=== PATIENT | male | born 1960 | race Caucasian/White ===

== ENCOUNTER 2021-10-23 12:27 | Inpatient (IN) | payer OTHER, SELFPAY ==
[~2021-10-23] VITALS: Ht 177.8 cm; Wt 99.8 kg
[2021-10-23 12:27] VITALS: BP 150/109
--- NOTE | 2021-10-23 13:05 | NUR ---
PATIENT SOILED IN DIAPER, PROVIDED [facility]A [facility]ARE AT BEDSIDE, CLEAN DIAPER PLACED ON PATIENT. CLEAN BLANKETS GIVEN AND BED PLACED IN LOWEST POSITION W/ SAFETY MEASURES PUT INTO PLACE.
--- NOTE | 2021-10-23 13:09 | NUR ---
BLOOD, URINE AND BALDO SWAB WALKED DOWN TO LAB
[2021-10-23 13:19] LABS: BASOPHILS % (AUTO) 0.3 % (0.0-2.0); EOSINOPHILS # (AUTO) 0.1 K/uL (0-0.4); EOSINOPHILS % (AUTO) 2.2 % (0.0-4.0); HEMATOCRIT 45.8 % (36-52); HEMOGLOBIN 15.1 g/dL (12.0-18.0); LYMPHOCYTES # (AUTO) 2.2 K/uL (2.0-11.5); LYMPHOCYTES % (AUTO) 35.9 % (20.5-51.1); MEAN CORPUSCULAR HEMOGLOBIN 29 pg (27-31); MEAN CORPUSCULAR HGB CONC 33 g/dL (33-37); MEAN CORPUSCULAR VOLUME 88.1 fL (80-94); MONOCYTES # (AUTO) 0.4 K/uL (0.8-1.0); MONOCYTES % (AUTO) 7.2 % (1.7-9.3); NEUTROPHILS # (AUTO) 3.3 K/uL (1.8-7.7); NEUTROPHILS % (AUTO) 54.4 % (42.2-75.2); PLATELET COUNT (AUTO) 321 K/uL (140-450); RED CELL DISTRIBUTION WIDTH 15.1 % (11.6-13.7)
--- NOTE | 2021-10-23 13:23 | NUR ---
XR AT BEDSIDE PERFORMING CXR.
[2021-10-23] MEDS ORDERED: FLEPED RC (13:42)
[2021-10-23] MEDS ORDERED: BISA-218 RC (13:42)
[2021-10-23] MEDS ORDERED: ACET-10509 PO (13:42)
[2021-10-23] MEDS ORDERED: DOCU-299 PO (13:42)
[2021-10-23] MEDS ORDERED: ALPOS OP (13:42)
[2021-10-23] MEDS ORDERED: LACT-103 PO (13:57)
[2021-10-23] MEDS ORDERED: LEVE100021 PO (13:58)
[2021-10-23] MEDS ORDERED: MELA5SGL PO (13:59)
[2021-10-23] MEDS ORDERED: METO25TA14 PO (14:00)
[2021-10-23 14:01] LABS: APPEARANCE,URINE SL CLOUDY (CLEAR); BILIRUBIN,URINE 1+ (NEGATIVE); BLOOD, URINE 3+ (NEGATIVE); COLOR,URINE YELLOW (YELLOW); LEUKOCYTE ESTERASE ,URINE 1+ (NEGATIVE); NITRITE, URINE NEGATIVE (NEGATIVE); UGLUCOSE NEGATIVE (NEGATIVE)
--- NOTE | 2021-10-23 14:30 | NUR ---
PT TAKEN TO CT VIA GUILLE WITH PLATE FINISHER
[2021-10-23 14:44] LABS: HYALINE CASTS, URINE 0-10 /LPF (None Seen)
[2021-10-23 14:45] LABS: ALBUMIN 2.5 g/dL (3.4-5.0); ANION GAP 11.4 (8-16); CARBON DIOXIDE 27.9 mmol/L (21-32); CREATININE 0.8 mg/dL (0.6-1.3); POTASSIUM 3.3 mmol/L (3.5-5.1); TOTAL BILIRUBIN 0.6 mg/dL (0.0-1.0)
--- NOTE | 2021-10-23 14:46 | NUR ---
PT BACK FROM CT OF HEAD, PT BACK ON VS MONITOR, PATIENT POSITIONED FOR COMFORT; HOB ELEVATED; BEDRAILS UP X2; BED DOWN. ER MD MADE AWARE OF PT STATUS.
[2021-10-23 14:48] LABS: WBC,URINE 0-5 /HPF (0-5)
[2021-10-23] MEDS ORDERED: NACL 0.9% 1,000 ML IV ONE (15:05)
[2021-10-23] MEDS ORDERED: MAGN400S60 PO (15:10)
[2021-10-23] MEDS ORDERED: cefTRIAXone 1,000 MG VIAL ONE (15:10)
[2021-10-23] MEDS ORDERED: MULT9LIQ4 PO (15:10)
[2021-10-23] MEDS ORDERED: TRAZ-343 PO (15:10)
[2021-10-23] MEDS ORDERED: HYDR-5080 PO (15:10)
[2021-10-23] MEDS ORDERED: PSYL0.529 PO (15:10)
[2021-10-23] MEDS ORDERED: NAPR-54 PO (15:10)
[2021-10-23] MEDS ORDERED: NACL 0.9% 1,000 ML IV SCH (15:20)
[2021-10-23] MEDS ORDERED: VOL25 TOP (15:37)
[2021-10-23] MEDS ORDERED: MAGNESIUM HYDROXIDE 2400 MG/30 ML UDC PO PRN (15:55)
[2021-10-23] MEDS ORDERED: ACETAMINOPHEN EXTRA STRENGTH 500 MG TAB PO PRN (15:55)
[2021-10-23] MEDS ORDERED: HYDROcodone/APAP 7.5/325 MG 1 TAB PO SCH (15:55)
[2021-10-23] MEDS ORDERED: bisacodyL 10 MG SUPP RC PRN (15:55)
[2021-10-23] MEDS ORDERED: NAPROXEN 500 MG TAB PO SCH (15:55)
[2021-10-23] MEDS ORDERED: POTASSIUM CHLORIDE 10 MEQ TABER PO PRN (16:00)
[2021-10-23] MEDS ORDERED: ACETAMINOPHEN 325 MG TAB PO PRN (16:00)
[2021-10-23] MEDS ORDERED: LACTULOSE 20 GM/30 ML UDC PO SCH (16:00)
[2021-10-23] MEDS ORDERED: ZOLPIDEM 5 MG TAB PO PRN (16:00)
[2021-10-23] MEDS ORDERED: HYDROcodone/APAP 5/325 MG 1 TAB TAB PO PRN (16:00)
[2021-10-23] MEDS ORDERED: ONDANSETRON 4 MG/2 ML VIAL IM/IVP PRN (16:00)
[2021-10-23] MEDS ORDERED: MAG SULF 2000 MG/WATER PREMIX 50 ML IV PRN (16:00)
[2021-10-23] MEDS ORDERED: MORPHINE SULFATE 2 MG/ML SYR IVP PRN (16:00)
[2021-10-23] MEDS ORDERED: DOCUSATE SODIUM 100 MG GELCAP PO PRN (16:00)
[2021-10-23] MEDS ORDERED: LORazepam 2 MG/ML VIAL IM/IVP PRN (16:00)
[2021-10-23] MEDS ORDERED: SODIUM PHOSPHATE 118 ML ENEM RC PRN (16:15)
[2021-10-23] MEDS ORDERED: MELATONIN 3 MG TAB PO PRN (16:20)
--- NOTE | 2021-10-23 16:40 | NUR ---
Patient will be admitted to care of DR REID. Admited to TELEMETRY. Will go to room 125 B. Belongings list completed. Report to arcenio Muller.
[2021-10-23 16:45] VITALS: BP 128/88
--- NOTE | 2021-10-23 16:45 | NUR ---
RECEIVED PT FROM ER VIA [employer]. PT AWAKE, A/0X1, RESPONSIVE WITH FEW WORDS, UZBEK SPEAKING. RESPIRATION EVEN AND UNLABORED. DENIES PAIN AT THIS TIME. WITH RIGHT HAND 20G RUNNING NS AT 70CC/HR, LEFT WRIST 18G. SKIN INTACT. CALL LIGHT WITHIN REACH. ALL SAFETY MEASURES IN PLACE. SPOKE WITH DAUGHTER FRANCISCA [phone] AND JACKIE SALCDIO [phone]. [id number] RR16 TEMP 97.4 O2 97%
[2021-10-23 16:47] LABS: PROTHROMBIN TIME 10.7 secs (10.8-13.4)
[2021-10-23 16:57] LABS: THYROID STIMULATING HORMONE 4.05 uIU/mL (0.34-3.74)
[2021-10-23] MEDS ORDERED: KCL 20 MEQ/WATER INJ PREMIX 100 ML IV SCH (18:00)
[2021-10-23] MEDS: POTASSIUM CHL 20 MEQ / DEXT 5% 1,000 ML IV SCH (18:08)
[2021-10-23 20:00] VITALS: BP 143/91
--- NOTE | 2021-10-23 20:04 | NUR ---
ENDORSED PT TO SYRUP MIXER HELPER NURSE. PT IN STABLE CONDITION.
[2021-10-23] MEDS: levETIRAcetam 100 MG/ML ORASYR PO SCH (20:31)
[2021-10-23] MEDS: DOCUSATE SODIUM 100 MG GELCAP PO SCH (20:31)
[2021-10-23] MEDS: traZODone 50 MG TAB PO SCH (20:31)
[2021-10-23] MEDS: METOPROLOL 25 MG TAB PO SCH (20:32)
[2021-10-23] MEDS ORDERED: LEVETIRACETAM 500 MG PO SCH (21:00)
[2021-10-23] MEDS ORDERED: MELATONIN 5 MG PO SCH (21:00)
[2021-10-24] VITALS: BP 137/91
[2021-10-24] MEDS: POTASSIUM CHL 20 MEQ / DEXT 5% 1,000 ML IV SCH ×3 (03:42→17:11)
[2021-10-24 04:00] VITALS: BP 138/81
[2021-10-24 06:26] LABS: ANION GAP 9.3 (8-16); CARBON DIOXIDE 27.9 mmol/L (21-32); CREATININE 0.8 mg/dL (0.6-1.3); POTASSIUM 3.2 mmol/L (3.5-5.1)
[2021-10-24 06:27] LABS: MAGNESIUM 2.5 mg/dL (1.8-2.4); PHOSPHORUS 3.3 mg/dL (2.5-4.9)
[2021-10-24 06:35] LABS: HEMATOCRIT 40.9 % (36-52); HEMOGLOBIN 13.5 g/dL (12.0-18.0); MEAN CORPUSCULAR HEMOGLOBIN 30 pg (27-31); MEAN CORPUSCULAR HGB CONC 33 g/dL (33-37); MEAN CORPUSCULAR VOLUME 89.5 fL (80-94); PLATELET COUNT (AUTO) 326 K/uL (140-450); RED BLOOD CELL COUNT(AUTO) 4.57 MIL/uL (4.20-6.10); RED CELL DISTRIBUTION WIDTH 15.6 % (11.6-13.7); WHITE BLOOD COUNT (AUTO) 7.3 K/uL (4.8-10.8)
--- NOTE | 2021-10-24 07:45 | NUR ---
RECEIVED REPORT FROM [facility] CONSULTANT RN. PT IN STABLE CONDITION.
[2021-10-24 08:08] LABS: T4 (THYROXINE) 6.9 ug/dL (4.5-12.0)
[2021-10-24 08:25] VITALS: BP 135/86
[2021-10-24 08:36] LABS: BASOPHILS % (MANUAL) 0 % (0-2); EOSINOPHILS % (MANUAL) 1 % (0-4); LYMPHOCYTES % (MANUAL) 40 % (20-46); MONOCYTES % (MANUAL) 6 % (5-12)
[2021-10-24 08:37] LABS: BLASTS, MANUAL % 0 % (0-0); METAMYELOCYTES % 0 % (0-0); MYELOCYTES % 0 % (0-0); OTHER CELLS,MANUAL % 0 (0-0); PROMYELOCYTES % 0 % (0-0)
[2021-10-24 08:38] LABS: BUFFY COAT SMEAR PREP 0
--- NOTE | 2021-10-24 09:13 | NUR ---
PATIENT HAS BEEN SCREENED AND CATEGORIZED HIGH NUTRITION RISK. PATIENT WILL BE SEEN WITHIN 1-2 DAYS OF ADMISSION. 10/24/21-10/25/21 RECEIVED REFERRAL FOR UNINTENTIONAL WEIGHT LOSS AND POOR APPETITE. SAM REID RD
[2021-10-24] MEDS: LACTULOSE 20 GM/30 ML UDC PO SCH (09:24)
[2021-10-24] MEDS: DOCUSATE SODIUM 100 MG GELCAP PO SCH ×2 (09:24→21:16)
[2021-10-24] MEDS: METOPROLOL 25 MG TAB PO SCH ×2 (09:24→21:16)
[2021-10-24] MEDS: levETIRAcetam 100 MG/ML ORASYR PO SCH ×2 (09:26→21:16)
--- NOTE | 2021-10-24 10:17 | NUR ---
PT VSS, NAD NOTED. PT TOOK AM MEDICATIONS. NO PAIN/DISTRESS NOTED.
[2021-10-24 11:57] VITALS: BP 126/78
--- NOTE | 2021-10-24 14:31 | NUR ---
10/24/21 RD INITIAL ASSESSMENT COMPLETED PLEASE REFER TO NUTRITION ASSESSMENT UNDER CARE ACTIVITY FOR ESTIMATED NUTRITIONAL NEEDS. 1. CONTINUE RENAL DIET TOLERATED 2. RECOMMEND NEPRO BID PER RD PROTOCOL -WILL PROVIDE 850 KCAL AND 38 GM PROTEIN DAILY 3. MONITOR PO INTAKE AND WEIGHT CHANGES 4. RD TO FOLLOW-UP 2-3 DAYS, HIGH RISK SAM REID, RD
--- NOTE | 2021-10-24 16:24 | NUR ---
PT. WITH LOW VERNA SCALE AT RISK, CONTINUE TO FOLLOW PRESSURE INJURY PREVENTION INTERVENTIONS. -TURN AND REPOSITION PATIENT Q 2H -INSPECT SKIN UNDER AND AROUND MEDICAL DEVICES. -ASSESS AND MONITOR SKIN CONDITION DURING POSITION CHANGE -OFFLOAD BILATERAL HEELS BY PLACING PILLOWS UNDER CALVES AT ALL TIMES, UNLESS OTHERWISE CONTRAINDICATED -APPLY HEEL PROTECTORS -PRESSURE REDISTRIBUTION SURFACE AND OFFLOADING SACRALCOCCYX -MANAGE FRICTION AND SHEAR BY USING LIFT SHEET TO REPOSITION PATIENT -HOB 30 DEGREE TOLERATE -PLEASE FOLLOW RD RECOMMENDATIONS PLEASE NOTIFIED WOUND CARE NURSE FOR ANY CHANGE OF SKIN CONDITION
[2021-10-24 16:39] VITALS: BP 130/89
--- NOTE | 2021-10-24 18:51 | NUR ---
PT IS AOx1, TO SELF, PT IN STABLE CONDITION, VSS. PER DR. LOPEZ HE RECOMMENDS PT HAS GTUBE PLACED FOR FEEDING. WILL ENDORSE CARE TO ROLLER COASTER DESIGNER RN.
--- NOTE | 2021-10-24 19:21 | NUR ---
ENDORSED CARE TO POPPED CORN OVEN ATTENDANT RN.
[2021-10-24] MEDS: traZODone 50 MG TAB PO SCH (21:15)
[2021-10-24 23:45] VITALS: BP 135/81
[2021-10-25] MEDS: POTASSIUM CHL 20 MEQ / DEXT 5% 1,000 ML IV SCH ×2 (03:05→14:03)
[2021-10-25 04:00] VITALS: BP 132/80
[2021-10-25 06:00] LABS: BASOPHILS % (AUTO) 0.3 % (0.0-2.0); EOSINOPHILS # (AUTO) 0.1 K/uL (0-0.4); EOSINOPHILS % (AUTO) 2.3 % (0.0-4.0); HEMATOCRIT 43.9 % (36-52); HEMOGLOBIN 14.4 g/dL (12.0-18.0); LYMPHOCYTES # (AUTO) 1.7 K/uL (2.0-11.5); LYMPHOCYTES % (AUTO) 32.1 % (20.5-51.1); MEAN CORPUSCULAR HEMOGLOBIN 29 pg (27-31); MEAN CORPUSCULAR HGB CONC 33 g/dL (33-37); MEAN CORPUSCULAR VOLUME 87.5 fL (80-94); MONOCYTES # (AUTO) 0.5 K/uL (0.8-1.0); MONOCYTES % (AUTO) 8.7 % (1.7-9.3); NEUTROPHILS % (AUTO) 56.6 % (42.2-75.2); PLATELET COUNT (AUTO) 278 K/uL (140-450); RED BLOOD CELL COUNT(AUTO) 5.02 MIL/uL (4.20-6.10); RED CELL DISTRIBUTION WIDTH 14.8 % (11.6-13.7); WHITE BLOOD COUNT (AUTO) 5.3 K/uL (4.8-10.8)
[2021-10-25 06:02] LABS: ANION GAP 13.1 (8-16); CARBON DIOXIDE 23.4 mmol/L (21-32); CREATININE 0.7 mg/dL (0.6-1.3); POTASSIUM 3.5 mmol/L (3.5-5.1)
[2021-10-25 06:08] LABS: MAGNESIUM 2.1 mg/dL (1.8-2.4); PHOSPHORUS 3.2 mg/dL (2.5-4.9)
[2021-10-25 08:11] VITALS: BP 127/82
[2021-10-25 08:25] LABS: APPEARANCE,URINE CLEAR (CLEAR); BILIRUBIN,URINE NEGATIVE (NEGATIVE); BLOOD, URINE 1+ (NEGATIVE); COLOR,URINE YELLOW (YELLOW); LEUKOCYTE ESTERASE ,URINE NEGATIVE (NEGATIVE); NITRITE, URINE NEGATIVE (NEGATIVE); UGLUCOSE NEGATIVE (NEGATIVE)
[2021-10-25] MEDS: METOPROLOL 25 MG TAB PO SCH ×2 (08:27→21:57)
[2021-10-25] MEDS: LACTULOSE 20 GM/30 ML UDC PO SCH (08:27)
[2021-10-25] MEDS: DOCUSATE SODIUM 100 MG GELCAP PO SCH ×2 (08:27→21:56)
[2021-10-25] MEDS: levETIRAcetam 100 MG/ML ORASYR PO SCH ×2 (08:27→21:56)
[2021-10-25 09:01] LABS: RBC,URINE 0-5 /HPF (0-5); WBC,URINE 0-5 /HPF (0-5)
[2021-10-25 09:02] LABS: HYALINE CASTS, URINE 0-10 /LPF (None Seen)
--- NOTE | 2021-10-25 11:19 | NUR ---
DURING AM MEAL, PT ASPIRATED AND WAS UNABLE TO TOLERATE FOOD. MD AWARE AND SWALLOW EVAL ORDERED. PT TO REMAIN NPO TILL THEN.
[2021-10-25 12:12] VITALS: BP 136/78
--- NOTE | 2021-10-25 15:15 | NUR ---
NUTRITION CONSULT RECEIVED FOR POOR PO INTAKE >3 DAYS ON 10/25/21. PT HAS BEEN ASSESSED BY RD ON 10/24/21. PT IS CURRENTLY NPO, PENDING SWALLOW EVALUATION PER RN. RD RECOMMENDATIONS: 1. IF/WHEN PT WILL NEED TUBE FEEDING, CONSIDER VITAL AF 1.2 AT GOAL RATE OF 65 ML/HR. -FREE WATER FLUSH 150 ML Q6H -START AT 25 ML/HR AND ADVANCE TOLERATED TO GOAL RATE -AT GOAL RATE, TUBE FEEDING WILL PROVIDE 1872 KCAL AND 117 GM OF PROTEIN, WHICH IS ADEQUATE TO MEET >75% OF ESTIMATED ENERGY NEEDS AND 100% OF ESTIMATED PROTEIN NEEDS. 2. RD WILL F/U IN 2-3 DAYS; HIGH RISK CHICA BECKER RD
[2021-10-25 16:00] VITALS: BP 128/72
--- NOTE | 2021-10-25 19:24 | NUR ---
ENDORSED CARE TO DATA MIGRATION CONSULTANT RN.
[2021-10-25] MEDS: traZODone 50 MG TAB PO SCH (21:56)
[2021-10-25] MEDS ORDERED: CRUSHER, PILL MC ONE (22:01)
[2021-10-25] MEDS: BRIMONIDINE TARTRATE 0.2% OP 5 ML BTL OP SCH (22:06)
[2021-10-26 04:00] VITALS: BP 122/80
[2021-10-26 07:41] LABS: BASOPHILS % (AUTO) 0.3 % (0.0-2.0); EOSINOPHILS # (AUTO) 0.1 K/uL (0-0.4); EOSINOPHILS % (AUTO) 1.1 % (0.0-4.0); HEMATOCRIT 43.6 % (36-52); HEMOGLOBIN 14.4 g/dL (12.0-18.0); LYMPHOCYTES # (AUTO) 1.9 K/uL (2.0-11.5); LYMPHOCYTES % (AUTO) 30.2 % (20.5-51.1); MEAN CORPUSCULAR HEMOGLOBIN 29 pg (27-31); MEAN CORPUSCULAR HGB CONC 33 g/dL (33-37); MEAN CORPUSCULAR VOLUME 87.8 fL (80-94); MONOCYTES # (AUTO) 0.5 K/uL (0.8-1.0); MONOCYTES % (AUTO) 7.8 % (1.7-9.3); NEUTROPHILS # (AUTO) 3.8 K/uL (1.8-7.7); NEUTROPHILS % (AUTO) 60.6 % (42.2-75.2); PLATELET COUNT (AUTO) 294 K/uL (140-450); RED BLOOD CELL COUNT(AUTO) 4.96 MIL/uL (4.20-6.10); RED CELL DISTRIBUTION WIDTH 14.7 % (11.6-13.7); WHITE BLOOD COUNT (AUTO) 6.4 K/uL (4.8-10.8)
[2021-10-26 07:47] LABS: ANION GAP 14.1 (8-16); CARBON DIOXIDE 25.2 mmol/L (21-32); CREATININE 0.8 mg/dL (0.6-1.3); POTASSIUM 3.3 mmol/L (3.5-5.1)
[2021-10-26 07:57] LABS: MAGNESIUM 2.4 mg/dL (1.8-2.4); PHOSPHORUS 4.6 mg/dL (2.5-4.9)
[2021-10-26 08:00] VITALS: BP 129/85
[2021-10-26] MEDS: levETIRAcetam 100 MG/ML ORASYR PO SCH ×2 (09:00→21:46)
[2021-10-26] MEDS: LACTULOSE 20 GM/30 ML UDC PO SCH (09:00)
[2021-10-26] MEDS: METOPROLOL 25 MG TAB PO SCH ×2 (09:00→21:46)
[2021-10-26] MEDS: DOCUSATE SODIUM 100 MG GELCAP PO SCH ×2 (09:00→21:45)
[2021-10-26] MEDS: POTASSIUM CHL 20 MEQ / DEXT 5% 1,000 ML IV SCH (13:11)
[2021-10-26] MEDS ORDERED: POTASSIUM CHLORIDE 20 MEQ in NACL 0.45% 1,000 ML IV SCH (13:20)
[2021-10-26] MEDS: POTASSIUM CHL 20 MEQ/ 1/2 NS 1,000 ML IV SCH (14:00)
[2021-10-26 16:00] VITALS: BP 130/85
--- NOTE | 2021-10-26 19:34 | NUR ---
ENDORSED PT TO DOMESTIC TRAVEL CONSULTANT NURSE FOR CONTINUITY OF CARE.
[2021-10-26] MEDS: traZODone 50 MG TAB PO SCH (21:45)
[2021-10-26] MEDS: BRIMONIDINE TARTRATE 0.2% OP 5 ML BTL OP SCH (21:47)
[2021-10-27] VITALS: BP 135/81
[2021-10-27] MEDS: POTASSIUM CHL 20 MEQ/ 1/2 NS 1,000 ML IV SCH (04:32)
[2021-10-27 06:31] LABS: BASOPHILS % (AUTO) 0.3 % (0.0-2.0); EOSINOPHILS % (AUTO) 0.6 % (0.0-4.0); HEMATOCRIT 43.3 % (36-52); HEMOGLOBIN 14.2 g/dL (12.0-18.0); LYMPHOCYTES # (AUTO) 1.5 K/uL (2.0-11.5); LYMPHOCYTES % (AUTO) 23.3 % (20.5-51.1); MEAN CORPUSCULAR HEMOGLOBIN 29 pg (27-31); MEAN CORPUSCULAR HGB CONC 33 g/dL (33-37); MEAN CORPUSCULAR VOLUME 87.8 fL (80-94); MONOCYTES # (AUTO) 0.6 K/uL (0.8-1.0); MONOCYTES % (AUTO) 9.6 % (1.7-9.3); NEUTROPHILS # (AUTO) 4.2 K/uL (1.8-7.7); NEUTROPHILS % (AUTO) 66.2 % (42.2-75.2); PLATELET COUNT (AUTO) 287 K/uL (140-450); RED BLOOD CELL COUNT(AUTO) 4.94 MIL/uL (4.20-6.10); RED CELL DISTRIBUTION WIDTH 14.8 % (11.6-13.7); WHITE BLOOD COUNT (AUTO) 6.3 K/uL (4.8-10.8)
[2021-10-27 06:33] LABS: ANION GAP 15.1 (8-16); CARBON DIOXIDE 23.3 mmol/L (21-32); CREATININE 0.8 mg/dL (0.6-1.3); POTASSIUM 3.4 mmol/L (3.5-5.1)
[2021-10-27 06:46] LABS: MAGNESIUM 2.3 mg/dL (1.8-2.4)
--- NOTE | 2021-10-27 07:03 | NUR ---
PATIENT IS ALERT WITH STABLE V/S AND IS NPO FOR SWALLOW EVAL. STILL ON ANTIBIOTIC AND POTASSIUM CHLORIDE IV. READY TO BE ENDORSED FOR CONTINUITY OF CARE.
[2021-10-27 07:42] LABS: PHOSPHORUS 3.3 mg/dL (2.5-4.9)
[2021-10-27 08:19] VITALS: BP 136/85
[2021-10-27] MEDS: levETIRAcetam 100 MG/ML ORASYR PO SCH ×2 (08:57→20:44)
[2021-10-27] MEDS: DOCUSATE SODIUM 100 MG GELCAP PO SCH ×2 (08:57→20:43)
[2021-10-27] MEDS: METOPROLOL 25 MG TAB PO SCH ×2 (08:57→20:45)
[2021-10-27] MEDS: LACTULOSE 20 GM/30 ML UDC PO SCH (08:58)
--- NOTE | 2021-10-27 10:21 | NUR ---
PT LAYING IN BED IN STABLE CONDITION. PT REMAINS NPO PENDING SWALLOW EVALUATION. PT'S FAMILY AWARE OF POC, QUESTIONS/CONCERNS ANSWERED AND SAFETY MEASURES IN PLACE.
[2021-10-27] MEDS: DEXT 5% /NACL 0.9% 1,000 ML IV SCH ×2 (12:04→20:32)
--- NOTE | 2021-10-27 15:15 | NUR ---
DC PLANN[age] YRS OLD MALE PATIENT WAS ADMITTED FROM [facility] WITH A DX OF ALOC, UTI, HYPERNATREMIA. PATIENT HAS A HX OF CVA, SEIZURE, HTN, AND CEREBRAL NEOPLASM. CXR SHOWED LOW LUNG VOLUMES. CT HEAD NO ACUTE BLEED. RAPID COVID TEST NEGATIVE. ADMINISTERED IVF, IV ABX ROCEPHIN AND CONTINUED HOME MEDS. CONSULTED WITH GI AND NEPHRO. DC PLAN TO RETURN TO [facility] WHEN STABLE. CM TO FOLLOW Addendum: 10/29/21 at 0912 by Alejandra Jasmine RN DC PLANNING: PATIENT HAS A DC ORDER TO RETURN TO [facility] FAXED ALL PAPERWORK TO [facility]. DC PLAN AWAITING FOR THE ROOM NUMBER. CM TO FOLLOW Addendum: 10/29/21 at 1025 by Alejandra Jasmine RN DC PLANNING: PATIENT IS RETURNING TO [facility] ROOM 210C # TO GIVE REPORT [phone]. ARRANGED TRANSPORT WITH [facility]SP[facility] RUG FRAME MOUNTER TIME 1PM. NOTIFIED GIOVANY CARLSON.
[2021-10-27 16:00] VITALS: BP 138/82
--- NOTE | 2021-10-27 16:02 | NUR ---
10/27/21 RD FOLLOW UP COMPLETED. PLEASE REFER TO NUTRITION ASSESSMENT UNDER CARE ACTIVITY FOR ESTIMATED NUTRITIONAL NEEDS. RD RECOMMENDS JEVITY 1.2 WITH A GOAL RATE OF 70ML/HR, FWF OF 350ML Q6HRS. THIS WILL PROVIDE 1584 KCAL, 93 GRAMS OF PROTEIN, AND 1356ML OF WATER. THIS WILL MEET 82% OF PTS ENERGY NEEDS AND 133% OF PROTEIN NEEDS. RD TO FOLLOW-UP IN 2-3 DAYS PATIENT IS HIGH RISK. NICK BROOKS RD
--- NOTE | 2021-10-27 19:10 | NUR ---
RECEIVED REPORT FROM MORNING RN. PATIENT RESTING ON BED, AWAKE WITH SPONTANEOUS EYE OPENING, CONFUSED AND INCOHERENT. LEFT SIDE WEAKNESS OBSERVED. IV FLUIDS ONGOING AT DESIRED RATE. BED LOCKED AT LOWEST WITH SIDE RAILS UP AND CALL LIGHT WITHIN REACH. WILL CONTINUE TO MONITOR PATIENT.
[2021-10-27 20:00] VITALS: BP 137/94
[2021-10-27] MEDS: BRIMONIDINE TARTRATE 0.2% OP 5 ML BTL OP SCH (20:39)
[2021-10-27] MEDS: traZODone 50 MG TAB PO SCH (20:44)
[2021-10-28 04:00] VITALS: BP 142/96
[2021-10-28] MEDS: DEXT 5% /NACL 0.9% 1,000 ML IV SCH (05:01)
--- NOTE | 2021-10-28 05:20 | NUR ---
MORNING CARE RENDERED. REPOSITIONING DONE. KEPT WARM AND COMFORTABLE. PATIENT MAINTAINED NPO PENDING GTUBE PLACEMENT, PO MEDS NOT GIVEN. ALL NEEDS ATTENDED. VS SIGNS STABLE.WILL CONTINUE TO MONITOR AND ASSESS PATIENT.
[2021-10-28 06:17] LABS: BASOPHILS % (AUTO) 0.3 % (0.0-2.0); EOSINOPHILS # (AUTO) 0.1 K/uL (0-0.4); EOSINOPHILS % (AUTO) 1.2 % (0.0-4.0); HEMOGLOBIN 13.8 g/dL (12.0-18.0); LYMPHOCYTES # (AUTO) 1.9 K/uL (2.0-11.5); LYMPHOCYTES % (AUTO) 30.6 % (20.5-51.1); MEAN CORPUSCULAR HEMOGLOBIN 29 pg (27-31); MEAN CORPUSCULAR HGB CONC 33 g/dL (33-37); MEAN CORPUSCULAR VOLUME 87.6 fL (80-94); MONOCYTES # (AUTO) 0.6 K/uL (0.8-1.0); MONOCYTES % (AUTO) 9.1 % (1.7-9.3); NEUTROPHILS # (AUTO) 3.6 K/uL (1.8-7.7); NEUTROPHILS % (AUTO) 58.8 % (42.2-75.2); PLATELET COUNT (AUTO) 283 K/uL (140-450); RED BLOOD CELL COUNT(AUTO) 4.79 MIL/uL (4.20-6.10); WHITE BLOOD COUNT (AUTO) 6.2 K/uL (4.8-10.8)
[2021-10-28 06:43] LABS: MAGNESIUM 2.3 mg/dL (1.8-2.4); PHOSPHORUS 2.6 mg/dL (2.5-4.9)
[2021-10-28 06:52] LABS: ANION GAP 10.4 (8-16); CARBON DIOXIDE 28.4 mmol/L (21-32); CREATININE 0.8 mg/dL (0.6-1.3)
--- NOTE | 2021-10-28 07:14 | NUR ---
REPORT GIVEN TO MORNING SHIFT RN FOR CONTINUITY OF CARE. PATIENT RESTING ON BED WITH NO UNTOWARD S/SX.
[2021-10-28 07:21] LABS: POTASSIUM 2.8 mmol/L (3.5-5.1)
[2021-10-28] MEDS ORDERED: KCL 20 MEQ/WATER INJ PREMIX 200 ML IV ONE (07:25)
[2021-10-28] MEDS: KCL 20 MEQ/WATER INJ PREMIX 100 ML IV SCH ×2 (08:00→10:13)
[2021-10-28] MEDS: DOCUSATE SODIUM 100 MG GELCAP PO SCH (08:52)
[2021-10-28] MEDS: levETIRAcetam 100 MG/ML ORASYR PO SCH ×2 (08:52→21:26)
[2021-10-28] MEDS: LACTULOSE 20 GM/30 ML UDC PO SCH (08:52)
[2021-10-28] MEDS: METOPROLOL 25 MG TAB PO SCH ×2 (08:52→21:25)
--- NOTE | 2021-10-28 09:05 | NUR ---
RECEIVED REPORT FROM MASTER SONAR TECHNICIAN RN, PT IN STABLE CONDITION.DR. JEROME AWARE OF PT'S CRITICAL POTASSIUM, NEW ORDER FOR 80 MEQ K RIDER.
[2021-10-28] MEDS ORDERED: fentaNYL citrate 0.05 MG/ML VIAL ONE (11:21)
[2021-10-28] MEDS ORDERED: MIDAZOLAM 5 MG/5 ML VIAL ONE (11:21)
[2021-10-28] MEDS ORDERED: FUROSEMIDE 20 MG/2 ML VIAL IVP SCH (12:10)
[2021-10-28] MEDS ORDERED: POTASSIUM CHLORIDE 20% 40 MEQ/15 ML UDC GT SCH (12:10)
--- NOTE | 2021-10-28 12:15 | NUR ---
PT BACK FROM OR IN STABLE CONDITION. PT RECEIVED WITH PEG TUBE CDI.
[2021-10-28] MEDS ORDERED: MIDAZOLAM 2 MG/2 ML VIAL IVP ONE (12:50)
[2021-10-28] MEDS ORDERED: fentaNYL citrate 0.05 MG/ML VIAL IVP ONE (12:50)
--- NOTE | 2021-10-28 13:14 | NUR ---
PT STARTED ON TUBE FEEDING.
--- NOTE | 2021-10-28 16:52 | NUR ---
PT TOLERATING JEVITY 1.2 ARINA THROUGH GTUBE FEEDING. RESIDUAL OF 30CC WHEN CHECKED. PT'S FEEDING INCREASED TO GOAL RATE OF 50CC.
--- NOTE | 2021-10-28 18:51 | NUR ---
PT IN STABLE CONDITION, TOLERATING TUBE FEEDING. PT'S FAMILY AWARE OF POC, QUESTIONS/CONCERNS ANSWERED AND SAFETY MEASURES IN PLACE.
--- NOTE | 2021-10-28 18:52 | NUR ---
WILL ENDORSE TO LIME TRIMMER RN.
--- NOTE | 2021-10-28 19:20 | NUR ---
RECD. REPORT FOR CONTINUITY OF CARE, PATIENT RESTING IN BED, AWAKE, NON-VERBAL. RESPIRATION EVEN AND UNLABORED. IV OF D5 NS INFUSING AT 120 ML/HR, LEFT WRIST G20. GT FEEDING OF JEVITY INFUSING AT 50 ML/HR, GT SITE DRY AND INTACT. SAFETY MEASURES ENFORCED. SIDE RAILS PADDED FOR SEIZURE PRECAUTION. INCONTINENT, WITH LEFT SIDED WEAKNESS. NO APPEARANCE OF PAIN NOTED, FLACC -0.
[2021-10-28 20:00] VITALS: BP 149/100
--- NOTE | 2021-10-28 20:00 | NUR ---
PATIENT PLAN OF CARE DISCUSSED AND REVIEWED WITH DOROTHY SULLIVAN.
[2021-10-28] MEDS: traZODone 50 MG TAB PO SCH (21:26)
--- NOTE | 2021-10-28 21:26 | NUR ---
SCHEDULED MEDICATIONS ADMINISTERED VIA GT. TOLERATED WELL.
[2021-10-28] MEDS: BRIMONIDINE TARTRATE 0.2% OP 5 ML BTL OP SCH (21:44)
--- NOTE | 2021-10-28 23:30 | NUR ---
DIAPER CHANGED, CLEANSED AND REPOSITIONED IN BED WITH PILLOWS ON PRESSURE AREAS.
--- NOTE | 2021-10-29 01:30 | NUR ---
SLEEPING COMFORTABLY IN BED, RESPIRATION EVEN AND UNLABORED.
--- NOTE | 2021-10-29 03:30 | NUR ---
RESTING IN BED, COMFORTABLE. NO APPEARANCE OF PAIN OR DISCOMFORT NOTE, FLACC -0.
[2021-10-29 04:00] VITALS: BP 131/97
--- NOTE | 2021-10-29 05:30 | NUR ---
TOLERATING FEEDING WELL, RESIDUAL 25 ML.
[2021-10-29 06:02] LABS: BASOPHILS % (AUTO) 0.7 % (0.0-2.0); EOSINOPHILS # (AUTO) 0.1 K/uL (0-0.4); EOSINOPHILS % (AUTO) 1.7 % (0.0-4.0); HEMATOCRIT 42.1 % (36-52); HEMOGLOBIN 14.3 g/dL (12.0-18.0); LYMPHOCYTES # (AUTO) 1.5 K/uL (2.0-11.5); LYMPHOCYTES % (AUTO) 23.3 % (20.5-51.1); MEAN CORPUSCULAR HEMOGLOBIN 29 pg (27-31); MEAN CORPUSCULAR HGB CONC 34 g/dL (33-37); MEAN CORPUSCULAR VOLUME 86.6 fL (80-94); MONOCYTES # (AUTO) 0.6 K/uL (0.8-1.0); MONOCYTES % (AUTO) 8.5 % (1.7-9.3); NEUTROPHILS # (AUTO) 4.3 K/uL (1.8-7.7); NEUTROPHILS % (AUTO) 65.8 % (42.2-75.2); PLATELET COUNT (AUTO) 306 K/uL (140-450); RED BLOOD CELL COUNT(AUTO) 4.87 MIL/uL (4.20-6.10); RED CELL DISTRIBUTION WIDTH 14.8 % (11.6-13.7)
--- NOTE | 2021-10-29 07:25 | NUR ---
CONDITION REMAIN STABLE. ENDORSED TO AM SHIFT NURSE FOR CONTINUITY OF CARE.
[2021-10-29 07:27] LABS: ANION GAP 13.9 (8-16); CREATININE 0.6 mg/dL (0.6-1.3)
--- NOTE | 2021-10-29 07:58 | NUR ---
RECEIVED REPORT FROM NIGHTSHIFT WITH ROUNDS. PT A/O X1 TO NAME ONLY. NO SOB OR RESPIRATORY DISTRESS NOTED. ON RA. JEVITY 1.2 @ 50 ML/HR. HOB ELEATED. IV TO SL. NEEDS ALL MET AT THIS TIME. SAFE PRECAUTIONS IN PLACE. WILL MONITOR CLOSELY.
--- NOTE | 2021-10-29 07:59 | NUR ---
RECEIVED REPORT FROM NIGHTSHIFT NURSE FOR CONTINUITY OF CARE. RESPIRATIONS ARE EVEN AND UNLABORED ON ROOM AIR, NO SIGNS OF DISTRESS OR SOB NOTED. NO SIGNS OF PAIN OR DISCOMFORT NOTED. PT HAS G TUBE IN PLACE. G TUBE IS INTACT AND PATENT. CALL LIGHT WITHIN REACH. ALL SAFETY MEASURES IN PLACE. WILL CONTINUE TO MONITOR.
[2021-10-29 08:00] VITALS: BP 132/90
[2021-10-29] MEDS ORDERED: KEP500L PO (08:48)
[2021-10-29] MEDS ORDERED: LACT10SO11 PO (08:48)
[2021-10-29] MEDS ORDERED: LACTULOSE 20 GM/30 ML UDC PO SCH (09:00)
[2021-10-29 09:01] LABS: POTASSIUM 2.9 mmol/L (3.5-5.1)
--- NOTE | 2021-10-29 09:01 | NUR ---
LAB CALLED WITH CRITICAL VALUE: POTASSIUM 2.9, DR PEDRO MADE AWARE. NEW ORDERS NOTED AND CARRIED OUT. WILL CONTINUE TO MONITOR.
[2021-10-29] MEDS: METOPROLOL 25 MG TAB PO SCH (09:40)
[2021-10-29] MEDS: levETIRAcetam 100 MG/ML ORASYR PO SCH (09:40)
--- NOTE | 2021-10-29 09:41 | NUR ---
ADMINISTERED ALL SCHEDULED MEDICATIONS. PT TOLERATED WELL. WILL CONTINUE TO MONITOR.
[2021-10-29] MEDS ORDERED: POTASSIUM CHLORIDE 20% 40 MEQ/15 ML UDC GT SCH (10:00)
--- NOTE | 2021-10-29 10:30 | NUR ---
QUARRY EQUIPMENT OPERATOR CALLED TO INFORM THAT PT WILL BE DISCHARGING BACK TO [facility]. PT WILL BE PICKED UP AT 1300. TRANSPORTATION SCHEDULED WITH [facility].
--- NOTE | 2021-10-29 11:00 | NUR ---
DISCHARGE PAPERWORK COMPLETED. CALLED [facility] TO GIVE REPORT. SPOKE WITH CARL.
[2021-10-29] MEDS ORDERED: KCL 20 MEQ/WATER INJ PREMIX 100 ML IV SCH (13:00)
--- NOTE | 2021-10-29 13:00 | NUR ---
DR JEROME PLACED ORDERS FOR POTASSIUM IV. INFORMED DR THAT THE CRITICAL VALUE OF POTASSIUM 2.[address] PEDRO EARLIER. DR PEDRO PLACED ORDERS FOR POTASSIUM 60 MEQ PO VIA GT. ORDERS CARRIED OUT. INFOMED DR JEROME, DR STATED TO CONTINUE WITH ORDERS FOR IV POTASSIUM AND INFORMED DR PEDRO.
--- NOTE | 2021-10-29 13:01 | NUR ---
INFORMED DR JEROME THAT PT ALREADY HAD DC ORDER AND IS SCHEDULED TO BE PICKED UP AT 1300. PER , PT CANNOT BE DISCHARGED. DR JEROME STATED "CALL MUTBRIGHTAH AND LET HER KNOW." WILL CONTINUE TO MONITOR.
--- NOTE | 2021-10-29 13:15 | NUR ---
DR PEDRO MADE AWARE OF ORDERS BY DR JEROME. PER DR PEDRO, ORDER STAT BMP. ORDERS CARRIED OUT. WILL CONTINUE TO MONITOR. .
[2021-10-29] MEDS: KCL 20 MEQ/WATER INJ PREMIX 100 ML IV SCH ×3 (14:00→18:00)
--- NOTE | 2021-10-29 14:00 | NUR ---
AWAITING TRANSPORTATION TO [facility] PT. PT WAS SCHEDULED TO BE PICKED UP AT 1300. ZIG ZAG STITCHER MADE AWARE. WILL CONTINUE TO MONITOR.
[2021-10-29 14:05] LABS: ANION GAP 13.5 (8-16); CARBON DIOXIDE 26.6 mmol/L (21-32); CREATININE 0.8 mg/dL (0.6-1.3); POTASSIUM 4.1 mmol/L (3.5-5.1)
--- NOTE | 2021-10-29 16:23 | NUR ---
DID ROUNDS ON PT. PT IN BED RESTING AT THIS TIME. RESPIRATIONS ARE EVEN AND UNLABORED. NO SIGNS OF DISTRESS NOTED. CALL LIGHT WITHIN REACH. ALL SAFETY MEASURES IN PLACE. WILL CONTINUE TO MONITOR.
--- NOTE | 2021-10-29 17:00 | NUR ---
STILL AWAITING TRANSPORT TO DEHYDRATION PLANT OPERATOR PT. CHARGE NURSE CALLED TRANSPORT COMPANY, COMPANY STATED THERE WAS A DELAY AND APOLOGIZED. WILL CONTINUE TO MONITOR. FAMILY MADE AWARE.
--- NOTE | 2021-10-29 19:10 | NUR ---
ENDORSED PT TO LOUVER MORTISER OPERATOR NURSE FOR CONTINUITY OF CARE. ALL NEEDS MET THROUGHOUT SHIFT. PT IS STABLE. ALL DISCHARGE PAPERWORK COMPLETED. [facility]. ENDORSED DISCHARGE TO LOUVER MORTISER OPERATOR NURSE.
--- NOTE | 2021-10-29 19:15 | NUR ---
RECEIVED ENDORSEMENT FROM AM NURSE. PATIENT IS APHASIC IN BED RESTING. ON ROOM AIR. BEDBOUND. NO SOB. BREATHING EVEN UNLABORED. ALL SAFETY PRECAUTIONS ARE IN PLACE. WILL CONTINUE TO MONITOR.
--- NOTE | 2021-10-29 20:30 | NUR ---
DISCHARGED PATIENT IN STABLE CONDITION TO [facility] PICKED UP BY 2 STAFF OF [facility]. NO S/S OF RESPIRATORY DISTRESS. NO BELONGINGS.
[2021-10-29 22:34] LABS: WHITE BLOOD COUNT (AUTO) 6.6 K/uL (4.8-10.8)
== END 2021-10-29 20:30 | DRG 640 ==
LOC: MED 12:27 → MTU 15:28 → MMU 16:05
PROC: 0DB68ZX Excision of Stomach, Via Natural or Artificial Opening Endoscopic, Diagnostic (ICD-10-PCS; principal; 2021-10-28 11:30)
PROC: 0DH63UZ Insertion of Feeding Device into Stomach, Percutaneous Approach (ICD-10-PCS; 2021-10-28 11:30)
DX: E87.0 Hyperosmolality and hypernatremia (principal); G93.41 Metabolic encephalopathy; E43 Unspecified severe protein-calorie malnutrition; N39.0 Urinary tract infection, site not specified; I69.351 Hemiplegia and hemiparesis following cerebral infarction affecting right dominant side; E87.6 Hypokalemia; R62.7 Adult failure to thrive; G40.909 Epilepsy, unspecified, not intractable, without status epilepticus; G47.00 Insomnia, unspecified; G89.29 Other chronic pain; D49.6 Neoplasm of unspecified behavior of brain; I10 Essential (primary) hypertension; E86.0 Dehydration; H70.891 Other mastoiditis and related conditions, right ear; E83.41 Hypermagnesemia; Z20.822 Contact with and (suspected) exposure to COVID-19; Z79.899 Other long term (current) drug therapy; Z68.31 Body mass index [BMI] 31.0-31.9, adult
CPT/HCPCS: 36415; 70450; 71045; 80048; 80053; 81001; 82150; 83036; 83605; 83690; 83735; 83880; 84100; 84134; 84436; 84443; 84484; 85025; 85610; 85730; 86677; 87040; 87081; 87086; 92526; 93005; 96361; 96365; 99285; J0696; J1644; J2250; J3010; J3480; J7030; J7060; J7070

== ENCOUNTER 2021-11-09 22:50 | Inpatient (IN) | payer OTHER, SELFPAY ==
[~2021-11-09] VITALS: Ht 182.9 cm; Wt 88.0 kg
[~2021-11-09 22:50] MED LIST: ACET-10509 PO; ALPOS OP; BISA-218 RC; DOCU-299 PO; FLEPED RC; HYDR-5080 PO; KEP500L PO; LACT-103 PO; LACT10SO11 PO; LEVE100021 PO; MAGN400S60 PO; MELA5SGL PO; METO25TA14 PO; MULT9LIQ4 PO; NAPR-54 PO; PSYL0.529 PO; TRAZ-343 PO; VOL25 TOP
--- NOTE | 2021-11-09 22:50 | NUR ---
PT BIBA BLS. TAKEN TO BED 3 Addendum: 11/10/21 at 0130 by DELIA PT ALS
[2021-11-09 23:05] VITALS: BP 117/86
--- NOTE | 2021-11-09 23:05 | NUR ---
PT BIBA FROM [facility] FOR FEVER AND TACHYCARDIA X6HRS TODAY. WAS GIVEN TYLENOL 500MG FOR FEVER AT THE FACILITY PRIOR TO COMING TO ED. PT WAS CLAMMY, HOT TO THE TOUCH, AND PALE. FEVER OF 101.4 RECTALLY ONCE PT ARRIVED TO THE ED. PT NORMALLY ON 4L O2 NC. GTUBE IN PLACE. PT WAS AT [facility] A FEW WEEKS AGO PER PARAMEDICS FOR LETHARGY AND WAS D/C. PT NONVERBAL, TRACKING, AND RESPONDS TO PAINFUL STIMULI. PMH: DM, BRAIN CANCER, CVA, UTI, CEREBRAL EDEMA NKA
[2021-11-09] MEDS ORDERED: NACL 0.9% 2,500 ML IV ONE (23:20)
[2021-11-09] MEDS ORDERED: cefTRIAXone 1,000 MG VIAL ONE (23:31)
[2021-11-09 23:32] LABS: BASOPHILS % (AUTO) 0.3 % (0.0-2.0); HEMATOCRIT 46.7 % (36-52); HEMOGLOBIN 14.7 g/dL (12.0-18.0); LYMPHOCYTES # (AUTO) 2.1 K/uL (2.0-11.5); LYMPHOCYTES % (AUTO) 14.6 % (20.5-51.1); MEAN CORPUSCULAR HEMOGLOBIN 28 pg (27-31); MEAN CORPUSCULAR HGB CONC 32 g/dL (33-37); MEAN CORPUSCULAR VOLUME 89.7 fL (80-94); MONOCYTES # (AUTO) 0.5 K/uL (0.8-1.0); MONOCYTES % (AUTO) 3.6 % (1.7-9.3); NEUTROPHILS # (AUTO) 11.6 K/uL (1.8-7.7); NEUTROPHILS % (AUTO) 81.5 % (42.2-75.2); PLATELET COUNT (AUTO) 274 K/uL (140-450); RED BLOOD CELL COUNT(AUTO) 5.21 MIL/uL (4.20-6.10); RED CELL DISTRIBUTION WIDTH 16.8 % (11.6-13.7); WHITE BLOOD COUNT (AUTO) 14.2 K/uL (4.8-10.8)
[2021-11-10 00:18] LABS: APPEARANCE,URINE CLEAR (CLEAR); BILIRUBIN,URINE NEGATIVE (NEGATIVE); BLOOD, URINE 3+ (NEGATIVE); COLOR,URINE YELLOW (YELLOW); LEUKOCYTE ESTERASE ,URINE NEGATIVE (NEGATIVE); NITRITE, URINE NEGATIVE (NEGATIVE); UGLUCOSE NEGATIVE (NEGATIVE)
[2021-11-10 00:27] LABS: RBC,URINE TOO NUMEROUS TO COUN /HPF (0-5); WBC,URINE 0-5 /HPF (0-5)
[2021-11-10 00:28] LABS: ALBUMIN 1.9 g/dL (3.4-5.0); ANION GAP 11.2 (8-16); CARBON DIOXIDE 30.7 mmol/L (21-32); CREATININE 1.3 mg/dL (0.6-1.3); POTASSIUM 3.9 mmol/L (3.5-5.1); TOTAL BILIRUBIN 0.7 mg/dL (0.0-1.0)
--- NOTE | 2021-11-10 00:32 | NUR ---
STOPPED 2500 NS INFUSION PER MD ORDER SODIUM AT 166
[2021-11-10] MEDS ORDERED: NACL 0.45% 1,000 ML IV ONE (00:35)
[2021-11-10] MEDS ORDERED: AZITHROMYCIN 500 MG in DEXTROSE 5% 250 ML IV ONE (00:35)
[2021-11-10] MEDS ORDERED: AZITHROMYCIN 500 MG INJ VIAL IV ONE (00:56)
--- NOTE | 2021-11-10 01:00 | NUR ---
ER HOLD BED 3
--- NOTE | 2021-11-10 01:53 | NUR ---
patient repositioned to the right side- pt tolerated well. pericare provided for patient, placed jose m pads, and cleaned wounds. Safety measures are in place, patient attached to monitor, and will continue to monitor patient.
[2021-11-10] MEDS ORDERED: DOCU50LI8 GT (04:16)
[2021-11-10] MEDS ORDERED: ALBU2.5V IH (04:16)
--- NOTE | 2021-11-10 05:50 | NUR ---
PATIENT REPOSITIONED TO THE LEFT SIDE- PT TOLERATED WELL
--- NOTE | 2021-11-10 05:50 | NUR ---
CHANGED DRESSING ON GTUBE SITE-- PT TOLERATED WELL
[2021-11-10] MEDS ORDERED: ACETAMINOPHEN EXTRA STRENGTH 500 MG TAB PEG STA (06:14)
[2021-11-10] MEDS ORDERED: NACL 0.9% 2,500 ML IV ONE (06:15)
[2021-11-10] MEDS ORDERED: NACL 0.45% IV SCH (06:15)
[2021-11-10] MEDS ORDERED: NACL 0.45% IV STA (06:17)
[2021-11-10] MEDS ORDERED: CRUSHER, PILL MC ONE (07:11)
--- NOTE | 2021-11-10 07:17 | NUR ---
REPORT RECEIVED FROM IVONE. Transfer of care at this time.
--- NOTE | 2021-11-10 07:17 | NUR ---
Pt report given to Emmett CARLSON. Transfer of care at this time.
[2021-11-10 07:54] LABS: BASOPHILS % (AUTO) 0.1 % (0.0-2.0); EOSINOPHILS % (AUTO) 0.1 % (0.0-4.0); HEMATOCRIT 39.1 % (36-52); HEMOGLOBIN 10.8 g/dL (12.0-18.0); LYMPHOCYTES % (AUTO) 11.6 % (20.5-51.1); MEAN CORPUSCULAR HEMOGLOBIN 28 pg (27-31); MEAN CORPUSCULAR HGB CONC 28 g/dL (33-37); MONOCYTES # (AUTO) 0.2 K/uL (0.8-1.0); MONOCYTES % (AUTO) 2.6 % (1.7-9.3); NEUTROPHILS # (AUTO) 7.2 K/uL (1.8-7.7); NEUTROPHILS % (AUTO) 85.6 % (42.2-75.2); PLATELET COUNT (AUTO) 162 K/uL (140-450); RED BLOOD CELL COUNT(AUTO) 3.84 MIL/uL (4.20-6.10); RED CELL DISTRIBUTION WIDTH 18.4 % (11.6-13.7); WHITE BLOOD COUNT (AUTO) 8.4 K/uL (4.8-10.8)
--- NOTE | 2021-11-10 08:15 | NUR ---
Patient will be admitted to care of [facility]. Admited to TELE. Will go to room 112 A. Belongings list completed. Report to ALDO AVERY.
[2021-11-10 08:30] VITALS: BP 104/74
--- NOTE | 2021-11-10 08:30 | NUR ---
RECEIVED PT AND REPORT FROM ER. AFEBRILE. PT ON 4L NC. SOB NOTED ON EXERTION. RR EVEN & UNLABORED. GTUBE DRESSING C/D/I. SACRAL WOUND NOTED AND DOCUMENTED. DEAL VIA GRAVITY WITH LIGHT JACKIE, CLEAR URINE. NO EDEMA NOTED. MEDICAL HX RECEIVED BY JACKIE (DAUGHTER). IVF INFUSING. IV SITE X2. RAC #18 AND L HAND #22. NEEDS ALL MET AT THIS TIME. SAFE PRECAUTIONS IN PLACE. WILL CONTINUE TO MONITOR CLOSELY.
[2021-11-10 09:58] LABS: ANION GAP 12.9 (8-16); CARBON DIOXIDE 27.2 mmol/L (21-32); POTASSIUM 3.1 mmol/L (3.5-5.1)
[2021-11-10 09:59] LABS: CREATININE 1.2 mg/dL (0.6-1.3)
--- NOTE | 2021-11-10 10:00 | NUR ---
DID NOT SPEAK WITH LAB. NOTE FROM DIRECTOR PARK REGARDING BLOOD GLUCOSE 636. NOTIFIED. AWAITING ORDERS.
[2021-11-10] MEDS ORDERED: LORazepam 2 MG/ML VIAL IM/IVP PRN (10:05)
[2021-11-10] MEDS ORDERED: ACETAMINOPHEN 325 MG TAB PO PRN (10:05)
[2021-11-10] MEDS ORDERED: ZOLPIDEM 5 MG TAB PO PRN (10:05)
[2021-11-10] MEDS ORDERED: HYDROcodone/APAP 5/325 MG 1 TAB TAB PO PRN (10:05)
[2021-11-10] MEDS: NACL 0.9% 1,000 ML IV SCH (10:05)
[2021-11-10] MEDS ORDERED: DOCUSATE SODIUM 100 MG GELCAP PO PRN (10:05)
[2021-11-10] MEDS ORDERED: MAG SULF 2000 MG/WATER PREMIX 50 ML IV PRN (10:05)
[2021-11-10] MEDS ORDERED: MORPHINE SULFATE 2 MG/ML SYR IVP PRN (10:05)
[2021-11-10] MEDS ORDERED: bisacodyL 10 MG SUPP RC PRN (10:05)
[2021-11-10] MEDS ORDERED: ONDANSETRON 4 MG/2 ML VIAL IM/IVP PRN (10:05)
[2021-11-10] MEDS ORDERED: SODIUM PHOSPHATE 118 ML ENEM RC PRN (10:15)
--- NOTE | 2021-11-10 10:33 | NUR ---
PATIENT HAS BEEN SCREENED AND CATEGORIZED HIGH NUTRITION RISK. PATIENT WILL BE SEEN WITHIN 1-2 DAYS OF ADMISSION. SAM REID RD
--- NOTE | 2021-11-10 11:00 | NUR ---
BLOOD GLUCOSE VIA ACCUCHECK WITH BLOOD GLUCOSE OF 98. ANOTHER ACCUCHECK COMPLETED WITH 107 BLOOD GLUCOSE. RECHECKED LABS WITH NO LABORATORY RESULTS/PENDING RESULTS OF BLOOD GLUCOSE. LAB CONTACTED AND MD CONTACTED AND AWARE. PT WITH NO S/S OF HYPERGLYCEMIA. PT RESTING QUIETY. IVF INFUSING. HOB ELEVATED. ON 4L NC. NEEDS ALL MET AT THIS TIME. SAFE PRECAUTIONS IN PLACE. WILL MONITOR CLOSELY.
[2021-11-10 11:12] LABS: PROTHROMBIN TIME 10.9 secs (10.8-13.4)
[2021-11-10 11:29] LABS: CHOL/HDL RATIO 5.5 (1-4.5); THYROID STIMULATING HORMONE 3.34 uIU/mL (0.34-3.74)
[2021-11-10] MEDS ORDERED: DEXTROSE 50% 50 ML SYR IVP PRN (11:45)
[2021-11-10] MEDS ORDERED: INSULIN LISPRO SLIDING SCALE 100 UNITS/ML VIAL SUBQ PRN (11:45)
[2021-11-10 12:00] VITALS: BP 111/69
[2021-11-10] MEDS: BLOOD GLUCOSE MONITORING 1 DEV DEV FS SCH ×3 (12:13→20:47)
--- NOTE | 2021-11-10 15:25 | NUR ---
DC PLANNIN YRS OLD MALE PATIENT WAS ADMITTED FROM [facility] WITH A DX OF SEPSIS SECONDARY TO UTI. PATIENT HAS A HX OF CVA, SEIZURE, HTN, AND CEREBRAL NEOPLASM. CXR SHOWED MILD HAZY INCREASED DENSITY IN LEFT LOWER LUNG COULD REPRESENT DEVELOPING INFILTRATE. RAPID COVID TEST NEGATIVE. ADMINISTERED IVF, IV ABX AZITHROMYCIN ROCEPHIN AND CONTINUED HOME MEDS. CONSULTED WITH TITUS, PULMO AND PA. DC PLAN TO RETURN TO [facility] WHEN STABLE. CM TO FOLLOW Addendum: 11/11/21 at 1522 by Alejandra Jasmine RN DC PLANNING: SEEN BY PA CULLEN 1/2 NS IVF, AND ZOSYN IV ABX PULMO AND TITUS FOLLOWING. DC PLAN TO GO BACK TO [facility] WHEN STABLE CM TO FOLLOW Addendum: 11/14/21 at 1504 by Alejandra Jasmine RN DC PLANNING: SEEN BY NEPHRO ID AND PULMO. NA 146 CONTINUE WITH D5W IVF AND FREE WATER WITH G-TUBE CONTINUE IV ABX ZOSYN. DC PLAN TO GO BACK TO [facility] WHEN STABLE CM TO FOLLOW
[2021-11-10 16:00] VITALS: BP 103/75
[2021-11-10] MEDS: PIPERACILLIN/TAZOBACTAM 3.375 GM in DEXTROSE 5% 50 ML IV SCH ×2 (17:41→23:40)
--- NOTE | 2021-11-10 18:45 | NUR ---
TRANSFUSION STARTED FOR 1 UNIT PRBC. VSS. PT STABLE. Addendum: 11/10/21 at 1950 by Agency Nurse ALDO Miller RN WRONG PT FOR DOCUMENTATION.
--- NOTE | 2021-11-10 19:00 | NUR ---
PT DENIES BLOOD TRANSFUSION REACTION. NO URTICARIA, FEVER, PAIN. PT IN NO DISTRESS, RESTING COMFORTABLY. VITAL SIGNS STABLE. CONTINUITY OF CARE ENDORSED TO NIGHTSHIFT. Addendum: 11/10/21 at 1949 by Agency Nurse ALDO Miller RN WRONG DOCUMENTATION.
--- NOTE | 2021-11-10 19:50 | NUR ---
PT IN NO DISTRESS. HOB ELEVATED. ON 4L NC. NO SOB NOTED AT REST. RR EVEN & UNLABORED. ENDORSED CONTINUITY OF CARE TO NIGHTSHIFT.
[2021-11-10 20:00] VITALS: BP 117/71
--- NOTE | 2021-11-10 20:48 | NUR ---
BLOOD SUGAR WAS 93, NO INSULIN COVERAGE NEEDED.
--- NOTE | 2021-11-10 20:50 | NUR ---
PATIENT WAS PICKED UP FOR CT CHEST. NO ACUTE DISTRESS. O2 AT 4L NC TOLERATING WELL.
[2021-11-10] MEDS: BRIMONIDINE TARTRATE 0.2% OP 5 ML BTL OP SCH (21:00)
[2021-11-10] MEDS: levETIRAcetam 100 MG/ML ORASYR PO SCH (21:00)
[2021-11-10] MEDS: METOPROLOL 25 MG TAB PO SCH (21:00)
--- NOTE | 2021-11-10 21:00 | NUR ---
DUE MEDICATIONS GIVEN. PT IS STABLE.
[2021-11-11] VITALS: BP 106/70
--- NOTE | 2021-11-11 01:59 | NUR ---
CHECKED PATIENT. PT IS SLEEPING WITH O2 AT 4L VIA NC. NO SOB. ALL SAFETY MEASURES ARE IN PLACE. IVF NS INFUSING AT 100 MLS/HR.
[2021-11-11] MEDS: NACL 0.9% 1,000 ML IV SCH (02:45)
[2021-11-11 04:00] VITALS: BP 101/64
[2021-11-11] MEDS: PIPERACILLIN/TAZOBACTAM 3.375 GM in DEXTROSE 5% 50 ML IV SCH ×4 (05:56→23:46)
[2021-11-11] MEDS: BLOOD GLUCOSE MONITORING 1 DEV DEV FS SCH ×4 (06:49→21:09)
--- NOTE | 2021-11-11 06:49 | NUR ---
BLOOD SUGAR WAS 90, NO INSULIN COVERAGE NEEDED.
[2021-11-11 07:07] LABS: BASOPHILS % (AUTO) 0.1 % (0.0-2.0); HEMATOCRIT 38.5 % (36-52); LYMPHOCYTES # (AUTO) 1.4 K/uL (2.0-11.5); LYMPHOCYTES % (AUTO) 11.7 % (20.5-51.1); MEAN CORPUSCULAR HEMOGLOBIN 28 pg (27-31); MEAN CORPUSCULAR HGB CONC 31 g/dL (33-37); MEAN CORPUSCULAR VOLUME 89.6 fL (80-94); MONOCYTES # (AUTO) 0.3 K/uL (0.8-1.0); MONOCYTES % (AUTO) 2.8 % (1.7-9.3); NEUTROPHILS # (AUTO) 10.2 K/uL (1.8-7.7); NEUTROPHILS % (AUTO) 85.4 % (42.2-75.2); PLATELET COUNT (AUTO) 184 K/uL (140-450); RED CELL DISTRIBUTION WIDTH 16.6 % (11.6-13.7); WHITE BLOOD COUNT (AUTO) 11.9 K/uL (4.8-10.8)
--- NOTE | 2021-11-11 07:30 | NUR ---
ENDORSED TO AM NURSE FOR CONTINUITY OF CARE. NO DISTRESS.
[2021-11-11 07:35] LABS: ANION GAP 11.6 (8-16); CARBON DIOXIDE 28.4 mmol/L (21-32)
[2021-11-11 07:44] LABS: MAGNESIUM 3.2 mg/dL (1.8-2.4); PHOSPHORUS 3.2 mg/dL (2.5-4.9)
[2021-11-11 08:00] VITALS: BP 106/75
[2021-11-11] MEDS ORDERED: AZITHROMYCIN 250 MG TAB PO SCH (09:00)
[2021-11-11] MEDS: METOPROLOL 25 MG TAB PO SCH ×2 (09:24→21:02)
[2021-11-11] MEDS: LACTULOSE 20 GM/30 ML UDC PO SCH (09:25)
[2021-11-11] MEDS: POTASSIUM CHLORIDE 10 MEQ TABER PO PRN (09:25)
[2021-11-11] MEDS: levETIRAcetam 100 MG/ML ORASYR PO SCH ×2 (09:25→21:01)
[2021-11-11] MEDS: MAGNESIUM HYDROXIDE 2400 MG/30 ML UDC PO SCH (09:25)
[2021-11-11 12:00] VITALS: BP 111/67
[2021-11-11] MEDS ORDERED: DEXTROSE 5% 1,000 ML IV SCH (13:10)
[2021-11-11] MEDS ORDERED: KCL 20 MEQ/WATER INJ PREMIX 100 ML IV ONE (13:15)
--- NOTE | 2021-11-11 13:15 | NUR ---
CATARINO GIVEN FOR POTASSIUM OF 3.0. PT IS STABLE.
--- NOTE | 2021-11-11 14:45 | NUR ---
DEAL DC AND WILL PLACE CONDOM CATHETER ON PT INSTEAD TO AVOID INFECTIONS.
--- NOTE | 2021-11-11 15:10 | NUR ---
11/11/21 RD INITIAL ASSESSMENT COMPLETED PLEASE REFER TO NUTRITION ASSESSMENT UNDER CARE ACTIVITY FOR ESTIMATED NUTRITIONAL NEEDS. 1. WHEN/IF MEDICALLY APPROPRIATE, RECOMMEND NEPRO CARBSTEADY WITH A GOAL RATE 45 ML/HR -FWF: 150 ML Q4H OR PER MD -START AT 10 ML/HR AND INCREASE BY 10 ML Q4H TOLERATED -WILL PROVIDE 1944 KCAL AND 87 GM PROTEIN, MEETING 80% OF ESTIMATED KCAL AND 100% OF ESTIMATED PROTEIN NEEDS 2. MONITOR NUTRITION-RELATED LABS 3. RD TO FOLLOW-UP 2-3 DAYS, HIGH RISK SAM REID RD
[2021-11-11 16:00] VITALS: BP 104/68
--- NOTE | 2021-11-11 17:00 | NUR ---
GOT ORDER FOR NEPRO AT 45 ML/HR WITH H20 FLUSHES OF 150ML [id number].
--- NOTE | 2021-11-11 18:40 | NUR ---
A CT NEEDLE BIOPSY WILL BE PERFORMED TO RULE OUT LYMPHOMA.
--- NOTE | 2021-11-11 19:40 | NUR ---
PT ENDORSED TO STEAM FITTER HELPER NURSE FOR CONTINUITY OF CARE. POC DISCUSSED.
--- NOTE | 2021-11-11 19:41 | NUR ---
RECEIVED ENDORSEMENT FROM AM NURSE FOR CONTINUITY OF CARE. PATIENT IS SLEEPING. OBSERVED CHEST RISE AND FALL. NO SOB. ON O2 AT 4L NC SATING AT 98%. IVF NS INFUSING AT 10 MLS/HR. ALL SAFETY PRECAUTIONS ARE IN PLACE. CONDOM CATHETER IN PLACE.
[2021-11-11 20:00] VITALS: BP 106/74
--- NOTE | 2021-11-11 21:01 | NUR ---
ALL SCHEDULED MEDICATIONS DUE GIVEN.
--- NOTE | 2021-11-11 21:09 | NUR ---
BLOOD SUGAR WAS 88 NO INSULIN NEEDED.
[2021-11-11] MEDS: BRIMONIDINE TARTRATE 0.2% OP 5 ML BTL OP SCH (21:18)
--- NOTE | 2021-11-11 21:30 | NUR ---
STARTED TUBE FEEDING NEPRO AT THE RATE OF 10 ML/HR, WATER FLUSH RATE OF 150 MLS Q4H.
[2021-11-12] VITALS: BP 103/65
--- NOTE | 2021-11-12 00:50 | NUR ---
PATIENT CLEANED, CHANGED AND REPOSITIONED.
[2021-11-12 04:00] VITALS: BP 103/70
[2021-11-12] MEDS: PIPERACILLIN/TAZOBACTAM 3.375 GM in DEXTROSE 5% 50 ML IV SCH ×3 (05:37→17:42)
[2021-11-12 06:16] LABS: ANION GAP 12.9 (8-16); CARBON DIOXIDE 28.9 mmol/L (21-32); CREATININE 1.1 mg/dL (0.6-1.3); POTASSIUM 3.8 mmol/L (3.5-5.1)
[2021-11-12 06:21] LABS: MAGNESIUM 3.5 mg/dL (1.8-2.4); PHOSPHORUS 3.7 mg/dL (2.5-4.9)
[2021-11-12] MEDS: BLOOD GLUCOSE MONITORING 1 DEV DEV FS SCH ×4 (06:40→21:00)
--- NOTE | 2021-11-12 07:00 | NUR ---
RECEIVED A CALL FROM GRAEME (LAB) REPORTING FOR CRITICAL LAB RESULTS. TEXTED DR. REID AT [phone]. AWAITING FOR CALL BACK. WILL ENDORSE TO AM NURSE.
[2021-11-12 07:18] LABS: BASOPHILS % (AUTO) 0.2 % (0.0-2.0); EOSINOPHILS % (AUTO) 0.1 % (0.0-4.0); HEMATOCRIT 39.5 % (36-52); HEMOGLOBIN 12.2 g/dL (12.0-18.0); LYMPHOCYTES # (AUTO) 1.4 K/uL (2.0-11.5); MEAN CORPUSCULAR HEMOGLOBIN 28 pg (27-31); MEAN CORPUSCULAR HGB CONC 31 g/dL (33-37); MEAN CORPUSCULAR VOLUME 90.5 fL (80-94); MONOCYTES # (AUTO) 0.3 K/uL (0.8-1.0); MONOCYTES % (AUTO) 2.4 % (1.7-9.3); NEUTROPHILS % (AUTO) 84.3 % (42.2-75.2); PLATELET COUNT (AUTO) 194 K/uL (140-450); RED BLOOD CELL COUNT(AUTO) 4.37 MIL/uL (4.20-6.10); RED CELL DISTRIBUTION WIDTH 17.4 % (11.6-13.7); WHITE BLOOD COUNT (AUTO) 10.7 K/uL (4.8-10.8)
--- NOTE | 2021-11-12 07:37 | NUR ---
ENDORSED PATIENT TO AM NURSE FOR CONTINUITY OF CARE. PT IS STABLE.
[2021-11-12 08:00] VITALS: BP 100/69
[2021-11-12] MEDS: METOPROLOL 25 MG TAB PO SCH ×2 (09:00→21:52)
[2021-11-12] MEDS: MAGNESIUM HYDROXIDE 2400 MG/30 ML UDC PO SCH (09:00)
[2021-11-12] MEDS: levETIRAcetam 100 MG/ML ORASYR PO SCH ×2 (10:03→21:49)
[2021-11-12] MEDS: LACTULOSE 20 GM/30 ML UDC PO SCH (10:03)
--- NOTE | 2021-11-12 11:55 | NUR ---
WOUND CARE EVALUATION NOTE: REASON FOR EVALUATION: RIGHT HEEL DIABETIC ULCER WOUND SKIN ASSESSMENT DONE WITH THIS 61 Y/O PT ADMITTED SNF TO [facility] WITH INITIAL DX OF AMS, TACHYCARDIA. PAST MEDICAL HISTORY: CVA, GLAUCOMA, CHRONIC PAIN, HYPERTENSION, SEIZURE DISORDER AND CEREBRAL NEOPLASM. ALL ABOVE INFORMATION OBTAINED FROM ADMISSION H&P. PT IS AWAKE. SKIN IS WARM AND DRY. BLE NO HAIR GROWTH, +1 EDEMA TO BILATERAL LOWER LEGS. BILATERAL DORSAL PEDAL PULSES PRESENT AND NORMAL. POC DISCUSSED WITH . INTEGUMENTARY: -RIGHT LATERAL OCCIPITAL OLD SURGICAL HEALED KELOID SURROUNDING SKIN ERYTHEMA, NO SWELLING, NO SKIN BREAKS -SACRALCOCCYX PRESSURE INJURY UN-STAGEABLE 8X11 CM 90% GALVAN/BROWN SLOUGH TISSUE, 10 % RED GRANULATION TISSUE, WOUND EDGE FLAT ATTACHED, WOUND BED MOIST, NO ODOR, CARMINA-WOUND SKIN NON-BLANCHABLE REDNESS -LEFT AND RIGHT HEELS THIN CALLUS RECOMMENDATIONS: - PLEASE MONITOR FOR S/S OF INFECTION to RIGHT LATERAL OCCIPITAL OLD SURGICAL HEALED KELOID SURROUNDING SKIN AND RIGHT EAR DRAINAGE, REPORT TO PHYSICIAN FOR ANY CHANGE OF CONDITION -APPLY HYDRAGUARD TO R/L GROINS EXTENDED TO PERINEUM BID AND PRN IF SOILING - CLEANSE SACRALCOCCYX WITH WOUND CLEANSING SOLUTION AND APPLY THERAHONEY GEL COVER WITH FOAM DRESSING QD AND PRN IF SOILING -POSITIONING: TURN AND REPOSITION PATIENT Q 2H OR SOONER USE PILLOWS TO KEEP BONY PROMINENCES FROM DIRECT CONTACT WITH SURFACES USE REPOSITIONING WEDGES TO PROVIDE 30-DEGREE ANGLE FOR SIDE LYING POSITIONS OFFLOADING OR FOAM DRESSING TO ALL TUBING TO PREVENT MEDICAL DEVICES RELATED PRESSURE INJURY -RE-EVALUATING AND MANAGING INCONTINENCE MONITOR SKIN CONDITION DURING POSITION CHANGE DO NOT MASSAGE REDNESS, BONY PROMINENCES, DO NOT USE DONUT-TYPE DEVICES FREQUENT CARMINA-CARE AND PROVIDE BARRIER CREAMS PRN IF SOILING MOISTURE CONTROL BY OFFER BED MOREL/URINAL /ABSORBENT PAD TO WICK AND HOLD MOISTURE. MAY OBTAIN ORDER FOR FLEX SEAL, RECTAL BAG OR DEAL CATHETER PER PHYSICIAN ORDER UNLESS OTHERWISE CONTRAINDICATED KEEP SKIN DRY AND PROTECT FROM FRICTION -MANAGE FRICTION/SHEAR/MOBILITY KEEP HOB AT THE LOWEST LEVEL OF ELEVATION NO MORE THAN 30 DEGREE UNLESS OTHERWISE CONTRAINDICATED USE LIFT SHEET OR TRANSFER DEVICE TO MOVE PATIENT AND PREVENT LATERAL SHEER. CONSIDER TRAPEZE IF APPROPRIATE PROTECT HEELS, ELBOWS BONY PROMENANCES WITH SKIN BERRIES OR FOAM DRESSING IF EXPOSED TO FRICTION OFFLOAD BILATERAL HEELS BY PLACING PILLOWS UNDER CALVES AT ALL TIMES, UNLESS OTHERWISE CONTRAINDICATED -PRESSURE REDISTRIBUTION SURFACE THERAPY-NOAH ISOFLEX ALEA -NUTRITION: PLEASE FOLLOW RD RECOMMENDATIONS AND OFFER NUTRITION SUPPLEMENTS IF ORDERED. PLEASE CONTACT WOUND CARE NURSE FOR ANY QUESTION AND CHANGE OF WOUND CONDITION.
[2021-11-12 12:00] VITALS: BP 110/78
--- NOTE | 2021-11-12 12:00 | NUR ---
SODIUM IS STILL HIGH AT 174. MD INFORMED. BREATHING EVEN AND UNLABORED. NO SIGNS OF DISTRESS NOTED. PT IS STABLE.
[2021-11-12] MEDS: HYDRAGUARD CREAM TP SCH (13:04)
[2021-11-12] MEDS: GAUZE TP SCH (13:04)
[2021-11-12] MEDS: THERAHONEY GEL 42.5 GM TP SCH (13:05)
[2021-11-12 13:40] LABS: ANION GAP 14.8 (8-16); CARBON DIOXIDE 27.5 mmol/L (21-32); CREATININE 1.2 mg/dL (0.6-1.3); POTASSIUM 3.3 mmol/L (3.5-5.1)
[2021-11-12] MEDS ORDERED: POTASSIUM CHL 40 MEQ/ D5-1/2NS 1,000 ML IV SCH (14:55)
[2021-11-12] MEDS: DEXTROSE 5% 1,000 ML IV SCH ×2 (15:50→22:30)
[2021-11-12] MEDS ORDERED: DESMOPRESSIN 4 MCG/ML AMP IV SCH (15:50)
[2021-11-12 16:00] VITALS: BP 108/74
--- NOTE | 2021-11-12 16:00 | NUR ---
IV CHANGED TO D5 AT 150ML/HR. URINE SAMPLE WILL BE OBTAINED FOR URINE SODIUM CONTNET. WATER FLUSHSES CHANGED TO 300CC ON THE SAME TUBE FEEDING ORDER. NEED MD TO SIGN POLST.BREATHING EVEN AND UNLABORED. NO SIGNS OF DISTRESS NOTED. PT IS STABLE.
[2021-11-12 18:35] LABS: ANION GAP 15.5 (8-16); CARBON DIOXIDE 27.6 mmol/L (21-32); CREATININE 1.1 mg/dL (0.6-1.3); POTASSIUM 3.1 mmol/L (3.5-5.1)
--- NOTE | 2021-11-12 19:15 | NUR ---
ENDORSED TO DIRECTOR OF COMMUNICATIONS NURSE FOR CONTINUITY OF CARE. POC DISCUSSED.
--- NOTE | 2021-11-12 19:16 | NUR ---
RECEIVED REPORT FROM AM NURSE. PATIENT IS APHASIC. NO SOB NOTED. WITH O2 AT 4L NC. IVF OF D5 INFUSING AT 150 MLS/HR. FLACC 0. TUBE FEEDING NEPRO RUNNING AT 45 ML/HR. ALL SAFETY PRECAUTIONS ARE IN PLACE. WILL CONTINUE TO MONITOR.
[2021-11-12 20:00] VITALS: BP 107/69
--- NOTE | 2021-11-12 21:49 | NUR ---
ALL SCHEDULED MEDICATIONS ADMINISTERED ORDERED.
[2021-11-12] MEDS: BRIMONIDINE TARTRATE 0.2% OP 5 ML BTL OP SCH (21:52)
[2021-11-12] MEDS: DESMOPRESSIN 4 MCG/ML AMP IV SCH (21:53)
[2021-11-12] MEDS: INSULIN LISPRO SLIDING SCALE 100 UNITS/ML VIAL SUBQ PRN (22:02)
--- NOTE | 2021-11-12 22:32 | NUR ---
PATIENT CLEANED, CHANGED AND REPOSITIONED.
[2021-11-13] VITALS: BP 99/63
[2021-11-13] MEDS: GAUZE TP SCH ×2 (01:02→13:14)
[2021-11-13] MEDS: HYDRAGUARD CREAM TP SCH ×2 (01:02→13:15)
[2021-11-13] MEDS: DEXTROSE 5% 1,000 ML IV SCH ×3 (05:10→21:48)
[2021-11-13] MEDS: PIPERACILLIN/TAZOBACTAM 3.375 GM in DEXTROSE 5% 50 ML IV SCH ×6 (06:01→23:44)
[2021-11-13 06:48] VITALS: BP 94/60
[2021-11-13] MEDS: BLOOD GLUCOSE MONITORING 1 DEV DEV FS SCH ×4 (06:49→20:38)
--- NOTE | 2021-11-13 06:50 | NUR ---
BLOOD SUGAR WAS 150 NO INSULIN NEEDED.
[2021-11-13 07:05] LABS: MAGNESIUM 2.8 mg/dL (1.8-2.4); PHOSPHORUS 3.1 mg/dL (2.5-4.9)
--- NOTE | 2021-11-13 07:18 | NUR ---
ENDORSED PATIENT TO AM NURSE FOR CONTINUITY OF CARE. PT IS STABLE.
--- NOTE | 2021-11-13 07:20 | NUR ---
RECEIVED BEDSIDE REPORT FROM APARTMENT MANAGER NURSE FOR CONTINUITY OF CARE. PT IS SLEEPING. BREATHING IS EVEN AND UNLABORED. NO SIGNS OF DISTRESS NOTED. NO PAIN NOTED. RUNNING D5 AT 150ML/HR. IV IS PATENT AND INTACT. PT IS STABLE.
[2021-11-13 07:46] LABS: HEMOGLOBIN 11.1 g/dL (12.0-18.0)
[2021-11-13 07:54] LABS: MEAN CORPUSCULAR HEMOGLOBIN 29 pg (27-31); MEAN CORPUSCULAR HGB CONC 32 g/dL (33-37); PLATELET COUNT (AUTO) 186 K/uL (140-450); RED BLOOD CELL COUNT(AUTO) 3.85 MIL/uL (4.20-6.10); WHITE BLOOD COUNT (AUTO) 10.3 K/uL (4.8-10.8)
[2021-11-13 08:00] VITALS: BP 107/72
[2021-11-13] MEDS: METOPROLOL 25 MG TAB PO SCH ×2 (09:00→20:39)
[2021-11-13] MEDS: MAGNESIUM HYDROXIDE 2400 MG/30 ML UDC PO SCH (09:00)
[2021-11-13] MEDS: DESMOPRESSIN 4 MCG/ML AMP IV SCH ×2 (09:31→20:39)
[2021-11-13] MEDS: LACTULOSE 20 GM/30 ML UDC PO SCH (09:32)
[2021-11-13] MEDS: levETIRAcetam 100 MG/ML ORASYR PO SCH ×2 (09:32→20:39)
--- NOTE | 2021-11-13 10:57 | NUR ---
CT NEEDLE BIOPSY WAS CANCELLED DUE TO THE NODULES UNREACHABLE. NOW ON THE LAST D5 BAG RUNNING AT 150. PT IS RESTING. BREATHING IS EVEN AND UNLABORED. NO SIGNS OF DISTRESS NOTED. NO PAIN NOTED. RUNNING D5 AT 150ML/HR. IV IS PATENT AND INTACT. PT IS STABLE.
[2021-11-13 12:00] VITALS: BP 103/72
[2021-11-13 12:06] LABS: ANION GAP 10.7 (8-16); CARBON DIOXIDE 29.7 mmol/L (21-32); POTASSIUM 3.4 mmol/L (3.5-5.1)
[2021-11-13 12:07] LABS: CREATININE 0.9 mg/dL (0.6-1.3)
[2021-11-13] MEDS: POTASSIUM CHLORIDE 10 MEQ TABER PO PRN (12:22)
[2021-11-13] MEDS: THERAHONEY GEL 42.5 GM TP SCH (13:16)
[2021-11-13 14:02] LABS: BASOPHILS % (MANUAL) 0 % (0-2); BLASTS, MANUAL % 0 % (0-0); EOSINOPHILS % (MANUAL) 3 % (0-4); LYMPHOCYTES % (MANUAL) 11 % (20-46); METAMYELOCYTES % 1 % (0-0); MONOCYTES % (MANUAL) 2 % (5-12); MYELOCYTES % 0 % (0-0); OTHER CELLS,MANUAL % 0 (0-0); PROMYELOCYTES % 0 % (0-0)
[2021-11-13 14:03] LABS: BUFFY COAT SMEAR PREP 0
--- NOTE | 2021-11-13 15:55 | NUR ---
URINE WAS COLLECTED FOR TEST. SODIUM STILL HIGH BUT LOWERING SLOWLY. PT IS RESTING. BREATHING IS EVEN AND UNLABORED. NO SIGNS OF DISTRESS NOTED. NO PAIN NOTED. RUNNING D5 AT 150ML/HR. IV IS PATENT AND INTACT. PT IS STABLE.
[2021-11-13 16:00] VITALS: BP 105/69
--- NOTE | 2021-11-13 16:06 | NUR ---
11/13/21 RD FOLLOW UP COMPLETED PLEASE REFER TO NUTRITION ASSESSMENT UNDER CARE ACTIVITY FOR ESTIMATED NUTRITIONAL NEEDS. 1. CONTINUE NEPRO CARBSTEADY @ 45 ML/HR TOLERATED -FWF: 300 ML Q4H PER MD -PROVIDES 1944 KCAL AND 87 GM PROTEIN, MEETING 80% OF ESTIMATED KCAL AND 100% OF ESTIMATED PROTEIN NEEDS 2. MONITOR NUTRITION-RELATED LABS 3. RD TO FOLLOW-UP 2-3 DAYS, HIGH RISK SAM REID RD
--- NOTE | 2021-11-13 17:00 | NUR ---
PT CLEANED UP AND READY FOR SCIENTIFIC DATABASE CURATOR. MD ORDERED 3 MORE LITERS OF D5 AT 150ML/HR. PT BREATHING IS EVEN AND UNLABORED. NO SIGNS OF DISTRESS NOTED. CHANGED WOUND OF SACROCOCCYX, NO SIGNS OF INFECTION NOTED. PAUSED TUBE FEEDING DURING LINEN AND PT CHANGE. PT IS STABLE.
[2021-11-13] MEDS: INSULIN LISPRO SLIDING SCALE 100 UNITS/ML VIAL SUBQ PRN (18:39)
--- NOTE | 2021-11-13 19:30 | NUR ---
PT ENDORSED TO COMMERCIAL CREDIT PORTFOLIO MANAGER NURSE FOR CONTINUITY OF CARE. POC DISCUSSED.
--- NOTE | 2021-11-13 19:45 | NUR ---
RECEIVED BEDSIDE REPORT FROM DAY SHIFT NURSE. PATIENT IS AWAKE NON-VERBAL, NOT FOLLOWING COMMAND, OR TRACKING. RESPIRATION EVEN UNLABORED ON 4L NC O2. NO DISTRESS NOTED. SKIN IS WARM AND DRY. IV PATENT AND INTACT. G-TUBE FEEDING NOTED. PLAN OF CARE UPDATED. ALL SAFETY MEASURES IN PLACE. BED IS AT LOW POSITION. CALL LIGHT WITHIN REACH. WILL CONTINUE TO MONITOR.
[2021-11-13 20:00] VITALS: BP 107/76
--- NOTE | 2021-11-13 20:15 | NUR ---
INITIAL ASSESSMENT DONE. VITALS WERE TAKEN. CHECK PATIENT G-TUBE RESIDUAL OBTAINED 50CC, WILL CONTINUE TO MONITOR
--- NOTE | 2021-11-13 20:38 | NUR ---
ALL SCHEDULED MEDS WERE GIVEN PER ORDER. WILL CONTINUE TO MONITOR.
[2021-11-13] MEDS: BRIMONIDINE TARTRATE 0.2% OP 5 ML BTL OP SCH (21:47)
[2021-11-14] VITALS: BP 116/77
[2021-11-14] MEDS: HYDRAGUARD CREAM TP SCH ×2 (00:10→12:14)
[2021-11-14] MEDS: GAUZE TP SCH ×2 (00:11→12:13)
--- NOTE | 2021-11-14 00:23 | NUR ---
VITALS WERE TAKEN. PT IS NO DISTRESS NOTED
--- NOTE | 2021-11-14 01:00 | NUR ---
WOUND CARE PROVIDED
--- NOTE | 2021-11-14 01:30 | NUR ---
MADE ROUNDS, PATIENT IS SLEEPING RESPIRATION EVEN UNLABORED ON 4L NC O2. NO DISTRESS NOTED. WILL CONTINUE TO MONITOR
[2021-11-14 04:00] VITALS: BP 117/75
--- NOTE | 2021-11-14 04:00 | NUR ---
VITALS WERE TAKEN
--- NOTE | 2021-11-14 05:00 | NUR ---
AM CARE PROVIDED
[2021-11-14] MEDS: PIPERACILLIN/TAZOBACTAM 3.375 GM in DEXTROSE 5% 50 ML IV SCH ×4 (05:02→23:51)
[2021-11-14] MEDS: DEXTROSE 5% 1,000 ML IV SCH (05:02)
[2021-11-14 06:20] LABS: BASOPHILS % (AUTO) 0.1 % (0.0-2.0); EOSINOPHILS # (AUTO) 0.1 K/uL (0-0.4); EOSINOPHILS % (AUTO) 0.8 % (0.0-4.0); HEMATOCRIT 33.7 % (36-52); LYMPHOCYTES # (AUTO) 0.9 K/uL (2.0-11.5); LYMPHOCYTES % (AUTO) 10.1 % (20.5-51.1); MEAN CORPUSCULAR HEMOGLOBIN 29 pg (27-31); MEAN CORPUSCULAR HGB CONC 33 g/dL (33-37); MEAN CORPUSCULAR VOLUME 87.7 fL (80-94); MONOCYTES # (AUTO) 0.2 K/uL (0.8-1.0); MONOCYTES % (AUTO) 2.1 % (1.7-9.3); NEUTROPHILS # (AUTO) 8.1 K/uL (1.8-7.7); NEUTROPHILS % (AUTO) 86.9 % (42.2-75.2); PLATELET COUNT (AUTO) 134 K/uL (140-450); RED BLOOD CELL COUNT(AUTO) 3.85 MIL/uL (4.20-6.10); RED CELL DISTRIBUTION WIDTH 15.8 % (11.6-13.7); WHITE BLOOD COUNT (AUTO) 9.4 K/uL (4.8-10.8)
[2021-11-14] MEDS: BLOOD GLUCOSE MONITORING 1 DEV DEV FS SCH ×4 (06:32→23:46)
[2021-11-14 06:34] LABS: ANION GAP 12.4 (8-16); CARBON DIOXIDE 25.7 mmol/L (21-32); CREATININE 0.6 mg/dL (0.6-1.3); MAGNESIUM 2.2 mg/dL (1.8-2.4); PHOSPHORUS 2.7 mg/dL (2.5-4.9); POTASSIUM 3.1 mmol/L (3.5-5.1)
--- NOTE | 2021-11-14 07:18 | NUR ---
ENDORSED PATIENT TO DAY SHIFT NURSE FOR CONTINUITY OF CARE. DAY SHIFT NURSE IS AWARE OF URINE COLLECTION
--- NOTE | 2021-11-14 07:38 | NUR ---
RECEIVED REPORT FROM PM SHIFT FOR CONTINUITY OF CARE, PT APPEARS ASLEEP, VSS, NO ACUTE DISTRESS, SAFETY MEASURES MAINTAINED, CALL LIGHT WITHIN REACH, PT STABLE, WILL CONTINUE TO MONITOR
[2021-11-14 08:00] VITALS: BP 108/72
[2021-11-14] MEDS: levETIRAcetam 100 MG/ML ORASYR PO SCH ×2 (08:38→20:35)
[2021-11-14] MEDS: POTASSIUM CHLORIDE 10 MEQ TABER PO PRN (08:38)
[2021-11-14] MEDS: LACTULOSE 20 GM/30 ML UDC PO SCH (08:38)
[2021-11-14] MEDS: MAGNESIUM HYDROXIDE 2400 MG/30 ML UDC PO SCH (08:38)
[2021-11-14] MEDS: METOPROLOL 25 MG TAB PO SCH ×2 (08:39→20:34)
[2021-11-14] MEDS ORDERED: CRUSHER, PILL MC ONE (08:53)
--- NOTE | 2021-11-14 09:00 | NUR ---
KDUR GIVEN PER PRN PARAMETERS
[2021-11-14] MEDS: DESMOPRESSIN 4 MCG/ML AMP IV SCH ×2 (09:06→20:37)
--- NOTE | 2021-11-14 10:56 | NUR ---
CONDOM CATH PLACED ON PT , PENDING URINE SAMPLE
--- NOTE | 2021-11-14 11:29 | NUR ---
SACRAL PRESSURE INJURY WOUND MEASUREMENT DONE WITH PRIMARY RN ODESSA AND DEPTH IS NOT 1CM. IT IS UN-STAGEABLE.SIZE DECREASING RESPONDING TO TREATMENT. WOUND BED 8X9 CM 90% BROWN SOFT SLOUGH TISSUE, 10% RED GRANULATION TISSUE, WOUND EDGE FLAT ATTACHED, WOUND BED, MOIST, NO ODOR, CARMINA-WOUND SKIN NON-BLANCHABLE REDNESS.
[2021-11-14 12:00] VITALS: BP 116/84
[2021-11-14] MEDS: INSULIN LISPRO SLIDING SCALE 100 UNITS/ML VIAL SUBQ PRN ×3 (12:07→23:48)
[2021-11-14] MEDS: THERAHONEY GEL 42.5 GM TP SCH (12:14)
--- NOTE | 2021-11-14 15:52 | NUR ---
PATIENT CARE ASSUMED FROM OUTGOING NURSE, NO S/SX OF DISTRESS OR DISCOMFORT AT THIS TIME
[2021-11-14 16:00] VITALS: BP 134/65
--- NOTE | 2021-11-14 19:10 | NUR ---
RECEIVED PATIENT RESTING ON BED, AO X 0, ON OXYGEN OF 4L/NC, O2 SAT AT 97%. BREATHING EVEN AND UNLABORED. TELEMONITOR MAINTAINED. NO S/SX OF CARDIAC OR RESPIRATORY DISTRESS. WITH ONGOING IV FLUIDS AT 150ML/HR. ONGOING FEEDING OF NEPRO AT 45 ML/HR WITH FWF OF 150 ML Q4H. BED AT LOWEST WITH SIDE RAILS UP X2. WILL CONTINUE TO MONITOR PATIENT.
[2021-11-14 19:35] LABS: APPEARANCE,URINE CLEAR (CLEAR); BILIRUBIN,URINE NEGATIVE (NEGATIVE); BLOOD, URINE TRACE-I (NEGATIVE); LEUKOCYTE ESTERASE ,URINE NEGATIVE (NEGATIVE); NITRITE, URINE NEGATIVE (NEGATIVE); UGLUCOSE NEGATIVE (NEGATIVE)
[2021-11-14 19:37] LABS: COLOR,URINE AMBER (YELLOW)
[2021-11-14 20:00] VITALS: BP 112/80
[2021-11-14] MEDS: BRIMONIDINE TARTRATE 0.2% OP 5 ML BTL OP SCH (20:34)
[2021-11-14 22:16] LABS: RBC,URINE 0-5 /HPF (0-5); WBC,URINE 0-5 /HPF (0-5)
[2021-11-15] VITALS: BP 113/77
[2021-11-15] MEDS: GAUZE TP SCH ×2 (00:39→12:28)
[2021-11-15] MEDS: HYDRAGUARD CREAM TP SCH ×2 (00:39→12:28)
[2021-11-15] MEDS: DEXTROSE 5% 1,000 ML IV SCH ×2 (01:36→11:45)
--- NOTE | 2021-11-15 01:40 | NUR ---
PATIENT RESTING ON BED. TELE MONITORING MAINTAINED, TACHYCARDIC AT 111. IV FLUIDS OF D5W AT 100 ML/HOUR CONTINUED. WILL CONTINUE TO MONITOR PATIENT.
[2021-11-15 04:00] VITALS: BP 116/78
[2021-11-15] MEDS: BLOOD GLUCOSE MONITORING 1 DEV DEV FS SCH ×3 (05:23→18:15)
[2021-11-15] MEDS: PIPERACILLIN/TAZOBACTAM 3.375 GM in DEXTROSE 5% 50 ML IV SCH ×3 (05:26→18:15)
--- NOTE | 2021-11-15 05:56 | NUR ---
PATIENT HAD A LARGE BM,MORNING CARE, PERICARE RENDERED. BED SHEET, CHUX AND GOWN CHANGED.HEAD OF BED ELEVATED WHILE ON TUBE FEEDING. ALL DUE MEDS GIVEN AND BS MONITORING DONE, NO COVERAGE. WILL CONTINUE TO MONITOR PATIENT.
--- NOTE | 2021-11-15 07:20 | NUR ---
REPORT GIVEN TO MORNING SHIFT RN FOR CONTINUITY OF CARE. PATIENT RESTING ON BED, STABLE AT THIS TIME.
--- NOTE | 2021-11-15 07:25 | NUR ---
RECEIVED REPORT FROM PM SHIFT FOR CONTINUITY OF CARE, PT APPEARS ASLEEP, NO ACUTE DISTRESS, 4LNC >95%, SAFETY MEASURES MAINTAINED, WILL CONTINUE TO MONITOR
[2021-11-15 07:55] LABS: ANION GAP 10.5 (8-16); CARBON DIOXIDE 25.7 mmol/L (21-32); CREATININE 0.6 mg/dL (0.6-1.3); POTASSIUM 3.2 mmol/L (3.5-5.1)
[2021-11-15 08:00] VITALS: BP 107/86
[2021-11-15 08:00] LABS: MAGNESIUM 1.9 mg/dL (1.8-2.4); PHOSPHORUS 2.4 mg/dL (2.5-4.9)
[2021-11-15 09:10] LABS: HEMATOCRIT 33.9 % (36-52); HEMOGLOBIN 11.1 g/dL (12.0-18.0); MEAN CORPUSCULAR HEMOGLOBIN 28 pg (27-31); MEAN CORPUSCULAR HGB CONC 33 g/dL (33-37); MEAN CORPUSCULAR VOLUME 86.5 fL (80-94); PLATELET COUNT (AUTO) 130 K/uL (140-450); RED BLOOD CELL COUNT(AUTO) 3.92 MIL/uL (4.20-6.10); RED CELL DISTRIBUTION WIDTH 15.3 % (11.6-13.7); WHITE BLOOD COUNT (AUTO) 10.8 K/uL (4.8-10.8)
[2021-11-15] MEDS: MAGNESIUM HYDROXIDE 2400 MG/30 ML UDC PO SCH (09:13)
[2021-11-15] MEDS: POTASSIUM CHLORIDE 10 MEQ TABER PO PRN (09:13)
[2021-11-15] MEDS: DESMOPRESSIN 4 MCG/ML AMP IV SCH (09:14)
[2021-11-15] MEDS: LACTULOSE 20 GM/30 ML UDC PO SCH (09:14)
[2021-11-15] MEDS: levETIRAcetam 100 MG/ML ORASYR PO SCH (09:14)
[2021-11-15] MEDS: METOPROLOL 25 MG TAB PO SCH (09:14)
--- NOTE | 2021-11-15 09:30 | NUR ---
MD MADE AWARE OF ABNORMAL LABS. PRN MEDICATIONS GIVEN.
[2021-11-15] MEDS ORDERED: ZOS3.375PM IV (10:46)
--- NOTE | 2021-11-15 10:48 | NUR ---
IV FLUIDS PLACED ON HOLD PER MD DIOR NOTE.
[2021-11-15 11:31] LABS: BASOPHILS % (MANUAL) 0 % (0-2); BLASTS, MANUAL % 0 % (0-0); BUFFY COAT SMEAR PREP 0; EOSINOPHILS % (MANUAL) 0 % (0-4); LYMPHOCYTES % (MANUAL) 12 % (20-46); METAMYELOCYTES % 0 % (0-0); MONOCYTES % (MANUAL) 3 % (5-12); MYELOCYTES % 1 % (0-0); OTHER CELLS,MANUAL % 0 (0-0); PROMYELOCYTES % 0 % (0-0)
[2021-11-15 12:00] VITALS: BP 127/87
[2021-11-15] MEDS: THERAHONEY GEL 42.5 GM TP SCH (12:29)
--- NOTE | 2021-11-15 12:32 | NUR ---
PT GIVEN COMPLETE BED BATH, MEDICATION APPLIED TO WOUNDS, PREVIOUS IV BECAME DISLODGED, NEW IV PLACED, ABX RUNNING, PT STABLE, VSS, SAFETY MEASURES MAINTAINED, NO ACUTE DISTRESS, WILL CONTINUE TO MONITOR
--- NOTE | 2021-11-15 12:45 | NUR ---
CONTACTED [facility], SPOKE WITH MELQUIADES CLAY DRY PRESS HELPER. PT IS GOING TO ROOM 210-C. RN ASSIGNED MADE AWARE.
--- NOTE | 2021-11-15 13:00 | NUR ---
spoke with rehan from [facility], last picker time at 6:30 pm.
--- NOTE | 2021-11-15 13:54 | NUR ---
[facility] SET UP FOR 183
--- NOTE | 2021-11-15 13:57 | NUR ---
REPORT CALLED TO JAYSON [facility]APMAN @ [phone], GAVE REPORT TO ALDO HERRERA PT GOING INTO ROOM 210C, NO ACUTE DISTRESS, IV STAYING IN PLACE FOR ABX TX AT [facility]. VSS, WILL CONTINUE TO MONITOR
[2021-11-15 16:00] VITALS: BP 119/74
--- NOTE | 2021-11-15 18:35 | NUR ---
[facility] HERE TO LOADING UNIT TOOL SETTER PT, VSS, NO ACUTE DISTRESS, SAFETY MEASURES MAINTAINED, FAMILY AWARE OF TRANSFER, PT STABLE FOR TRANSFER.
== END 2021-11-15 18:40 | DRG 871 ==
LOC: MED 22:50 → MTU 11-10 01:00
DX: A41.9 Sepsis, unspecified organism (principal); R65.21 Severe sepsis with septic shock; E43 Unspecified severe protein-calorie malnutrition; J18.9 Pneumonia, unspecified organism; J96.01 Acute respiratory failure with hypoxia; G93.41 Metabolic encephalopathy; N17.9 Acute kidney failure, unspecified; E87.0 Hyperosmolality and hypernatremia; N39.0 Urinary tract infection, site not specified; I69.354 Hemiplegia and hemiparesis following cerebral infarction affecting left non-dominant side; E87.1 Hypo-osmolality and hyponatremia; C85.90 Non-Hodgkin lymphoma, unspecified, unspecified site; Z66 Do not resuscitate; Z20.822 Contact with and (suspected) exposure to COVID-19; E87.6 Hypokalemia; I10 Essential (primary) hypertension; E11.65 Type 2 diabetes mellitus with hyperglycemia; K59.00 Constipation, unspecified; J45.909 Unspecified asthma, uncomplicated; H40.9 Unspecified glaucoma; D64.9 Anemia, unspecified; R91.8 Other nonspecific abnormal finding of lung field; E87.8 Other disorders of electrolyte and fluid balance, not elsewhere classified; E86.0 Dehydration; G40.909 Epilepsy, unspecified, not intractable, without status epilepticus; R13.10 Dysphagia, unspecified; Z85.841 Personal history of malignant neoplasm of brain; Z93.1 Gastrostomy status; Z79.899 Other long term (current) drug therapy; Z68.26 Body mass index [BMI] 26.0-26.9, adult
CPT/HCPCS: 36415; 71045; 71275; 80048; 80053; 81001; 82140; 82150; 82570; 82948; 83036; 83605; 83690; 83735; 83880; 83930; 83935; 84100; 84134; 84300; 84436; 84443; 84484; 85025; 85610; 85730; 87040; 87086; J0456; J0696; J1644; J1815; J2543; J2597; J3480; J7060; Q0092; Q9967

== ENCOUNTER 2021-11-17 19:44 | Inpatient (IN) | payer OTHER, SELFPAY ==
[~2021-11-17] VITALS: Ht 175.3 cm; Wt 77.6 kg
[~2021-11-17 19:44] MED LIST changes: +ALBU2.5V IH; -DOCU-299 PO; +DOCU50LI8 GT; -LACT-103 PO; -LEVE100021 PO; -PSYL0.529 PO; -TRAZ-343 PO; -VOL25 TOP; +ZOS3.375PM IV
--- NOTE | 2021-11-17 19:45 | NUR ---
PT SVEN CARNEY VIA GURNEY TO BED 12.
[2021-11-17 19:50] VITALS: BP 148/92
--- NOTE | 2021-11-17 19:51 | NUR ---
61YO/M BIBA FROM [facility] FOR R SIDED FACIAL SWELLING X2 DAYS WORSENING AND AUDIBLE GURGLING. PER NIKHIL, SILK CONDITIONER FROM [facility] PT WAS GIVEN AN ALBUETROL BREATHING TRT D/T THE GURGLING + PT O2 SAT 92% ON 3L NC. PER NIKHIL PT HAS BEEN NON-VERBAL RECENTLY. PT PRESENTS NON-VERBAL, AOX0, GCS 9, AUDIBLE CRACKLES AND GURGLING + LABORED, TACHYPNEIC BREATHING, + R SIDE HEAD CRANIOTONMY SCAR W DRIED BLOOD NOTED, + DRIED BLOOR NOTED IN R EAR. PER NIKHIL, DENIES PT HAVING ANY INJURIES OR FALLS, AND REPORTS BLOOD IN EAR DRAINED FROM HEAD. NO ACTIVE BLEEDING AT THIS TIME. PT CONNECTED TO MONITOR PT TACHYCARDIC AND TACHYPNEIC W O2 SAT FLUCTUATING 92-95% ON 4L NC. ERMD MADE AWARE OF PT STATUS AND VS. PMH: CVA, EPILEPSY, DIABETES, HTN, CANCER (SEE CHART) ALLERGIES: DENIES Addendum: 11/17/21 at 2226 by [employer] PT HAS G TUBE AND DEAL CATH DRAINING TO GRAVITY.
--- NOTE | 2021-11-17 20:15 | NUR ---
SPOKE W PT DAUGHTER JACKIE. PER PT DAUGHTER PT HAD CRANIOTOMY IN 2016, WAS RECENTLY DC FROM [facility] FOLLOWING A UTI. PER JACKIE PT WAS VERBAL X1 MO AGO BUT HAS SINCE BECOME NON-VERBAL AND ALTERED. PER JACKIE NOTICED PT HAVING BLOOD DRAINING FROM EAR X4 DAYS AGO. REPORTS PT HX OF BRAIN CANCER AND RECENTLY HAD BEEN DIAGNOSED W A MASS IN PT LIVER. PT DAUGHTER AND RIVKA GUAJARDO ALSO REPORTS PT IS DNR/DNI. TOLD DAUGHTER PT POLST HAS NOT BEEN SIGNED AND WILL NEED TO VERIFY POLST W ERMD. ERMD MADE AWARE.
[2021-11-17 21:27] LABS: BASOPHILS # (AUTO) 0.1 K/uL (0.00-0.22); BASOPHILS % (AUTO) 0.5 % (0.0-2.0); BILIRUBIN,URINE NEGATIVE (NEGATIVE); BLOOD, URINE 2+ (NEGATIVE); COLOR,URINE YELLOW (YELLOW); EOSINOPHILS # (AUTO) 0.1 K/uL (0-0.4); EOSINOPHILS % (AUTO) 0.5 % (0.0-4.0); HEMATOCRIT 36.2 % (36-52); HEMOGLOBIN 11.5 g/dL (12.0-18.0); LEUKOCYTE ESTERASE ,URINE TRACE (NEGATIVE); LYMPHOCYTES % (AUTO) 17.7 % (20.5-51.1); MEAN CORPUSCULAR HEMOGLOBIN 28 pg (27-31); MEAN CORPUSCULAR HGB CONC 32 g/dL (33-37); MEAN CORPUSCULAR VOLUME 87.2 fL (80-94); MONOCYTES # (AUTO) 0.4 K/uL (0.8-1.0); MONOCYTES % (AUTO) 3.4 % (1.7-9.3); NEUTROPHILS % (AUTO) 77.9 % (42.2-75.2); NITRITE, URINE NEGATIVE (NEGATIVE); PLATELET COUNT (AUTO) 201 K/uL (140-450); RED BLOOD CELL COUNT(AUTO) 4.15 MIL/uL (4.20-6.10); RED CELL DISTRIBUTION WIDTH 16.2 % (11.6-13.7); UGLUCOSE NEGATIVE (NEGATIVE); WHITE BLOOD COUNT (AUTO) 11.5 K/uL (4.8-10.8)
[2021-11-17 21:29] LABS: APPEARANCE,URINE HAZY (CLEAR)
--- NOTE | 2021-11-17 21:38 | NUR ---
PT GOING TO CT
[2021-11-17 21:42] LABS: ALBUMIN 1.3 g/dL (3.4-5.0); ANION GAP 13.6 (8-16); CARBON DIOXIDE 26.6 mmol/L (21-32); CREATININE 0.6 mg/dL (0.6-1.3); POTASSIUM 3.2 mmol/L (3.5-5.1); RBC,URINE 20-50 /HPF (0-5); TOTAL BILIRUBIN 0.5 mg/dL (0.0-1.0); WBC,URINE 60-80 /HPF (0-5)
--- NOTE | 2021-11-17 22:07 | NUR ---
PT BACK FROM CT. PT ON MONITOR VITALS RETAKEN
[2021-11-17] MEDS ORDERED: cefTRIAXone 1,000 MG VIAL ONE (22:15)
--- NOTE | 2021-11-17 22:35 | NUR ---
PT ONGOING TACHYPNEIC AND TACHYCARDIC, + AUDIBLE GURGLING/CRACKLES, ERMD MADE AWARE.
--- NOTE | 2021-11-18 00:26 | NUR ---
FAMILY AT BEDSIDE.
--- NOTE | 2021-11-18 00:35 | NUR ---
BALDO SAMPLE COLLECTED FROM PT NARES AND SENT TO LAB.
--- NOTE | 2021-11-18 01:02 | NUR ---
PT DAUGHTER AND AT BEDSIDE.
--- NOTE | 2021-11-18 01:55 | NUR ---
Pt report given to ALDO FOX. Transfer of care at this time.
--- NOTE | 2021-11-18 02:03 | NUR ---
Patient will be admitted to care of DR. FAN. Admited to TELEMETRY. Will go to [id number]. Belongings list completed. Report to ALDO FOX.
--- NOTE | 2021-11-18 02:06 | NUR ---
PT TRANSPORTED VIA GURNEY. PT IS AAOX0. NONVERBAL. PT IS ON NON-REBREATHER 15L SATING 100%. PT HAS LEFT AC 20 GAUGE. LEFT WRIST 24 GAUGE. SALINE LOCK. PT HAS G-TUBE WITH NO FEEDING AT THIS MOMENT. PT HAS SWELLING ON RIGHT SIDE OF THE FACE AND EAR. SACRAL WOUND. GURGLING RESPIRATIONS. TACHYPNEIC. ABDOMEN SOFT NON-TENDER. NO HEART MURMURS. PT WAS EDUCATED BOOK SEWER LIGHT SYSTEM, ROOM, AND STAFF. ALL SAFETY MEASURES TAKEN. WILL CONTINUE TO MONITOR THE PT.
--- NOTE | 2021-11-18 02:07 | NUR ---
PT IS NOT IN ANY DISTRESS. PT WAS ADMITTED WITH A FC FROM SNF DRAINING LIGHT JACKIE. FC IS SECURED AND PROPERLY HANGED. ALL SAFETY MEASURES TAKEN. WILL CONTINUE TO MONITOR THE PT.
[2021-11-18 04:00] VITALS: BP 130/89
--- NOTE | 2021-11-18 04:00 | NUR ---
PT IS SLEEPING IN BED COMFORTABLY. PT IS NOT IN ANY DISTRESS. PT IS SATING 100% ON NON-REBREATHER 15L. BED AT THE LOWEST POSITION. ALL SAFETY MEASURES TAKEN. WILL CONTINUE TO MONITOR THE PT.
[2021-11-18] MEDS ORDERED: PIPERACILLIN/TAZOBACTAM 3.375 GM VIAL IV ONE (05:19)
[2021-11-18] MEDS: PIPERACILLIN/TAZOBACTAM 3.375 GM in DEXTROSE 5% 50 ML IV SCH ×2 (05:27→12:00)
--- NOTE | 2021-11-18 05:30 | NUR ---
ALL DUE MEDS GIVEN. NO ADVERSE REACTION NOTED. WILL CONTINUE TO MONITOR THE PT.
--- NOTE | 2021-11-18 07:18 | NUR ---
RECEIVED REPORT FROM CASH MANAGEMENT OFFICER NURSE FOR CONTINUITY OF CARE. PT ASLEEP NON VERBAL ON 15L NON REBREATHER MASK O2 SAT AT 98%. HEAD OF BED ELEVATED FOR COMFORT.
--- NOTE | 2021-11-18 07:20 | NUR ---
ENDORSED PT TO DAY SHIFT RN FOR CONTINUITY OF CARE. PT IS STABLE.
[2021-11-18 08:00] VITALS: BP 133/83
[2021-11-18] MEDS ORDERED: ZOLPIDEM 5 MG TAB PO PRN (08:15)
[2021-11-18] MEDS ORDERED: VANCOMYCIN PER PHARMACY MC PRN (08:15)
[2021-11-18] MEDS ORDERED: DOCUSATE SODIUM 100 MG GELCAP PO PRN (08:15)
[2021-11-18] MEDS ORDERED: ACETAMINOPHEN 325 MG TAB PO PRN (08:15)
[2021-11-18] MEDS ORDERED: guaiFENesin DM 200/20 MG-10 ML 10 ML UDC PO PRN (08:15)
[2021-11-18] MEDS ORDERED: ONDANSETRON 4 MG/2 ML VIAL IM/IVP PRN (08:15)
[2021-11-18] MEDS ORDERED: NACL 0.9% 1,000 ML IV SCH (08:15)
[2021-11-18] MEDS ORDERED: HYDROcodone/APAP 7.5/325 MG 1 TAB PO PRN (08:15)
--- NOTE | 2021-11-18 08:39 | NUR ---
DR. BRYANT AT BED SIDE I INFORM THAT HE JUST ORDER NACL BUT SODIUM IS 150 HE ORDER TO CHANGE TO 1/2 NORMAL SALINE AND DISCONTINUE THE REGULAR DIET AND PUT PATIENT TO VITAL AF 35 CC/0 AND WATER FLUSH 100 EVERY 6 HOURS ORDER NOTED AND CARRIED OUT.
[2021-11-18] MEDS: NACL 0.45% 1,000 ML IV SCH ×2 (08:53→18:45)
[2021-11-18] MEDS: ACETAZOLAMIDE SOD 250 MG TAB PO SCH ×2 (08:54→20:40)
[2021-11-18] MEDS: PANTOPRAZOLE 40 MG TABEC PO SCH (08:54)
[2021-11-18] MEDS: VANCOMYCIN 1,000 MG in DEXTROSE 5% 250 ML IV SCH ×2 (09:39→20:45)
--- NOTE | 2021-11-18 09:40 | NUR ---
RN GAVE IVP VANCO NO ADVERSE REACTION NOTED. DAUGHTER AT BED SIDE.
--- NOTE | 2021-11-18 10:15 | NUR ---
PATIENT HAS BEEN SCREENED AND CATEGORIZED HIGH NUTRITION RISK. PATIENT WILL BE SEEN WITHIN 1-2 DAYS OF ADMISSION. / RECEIVED CONSULT AND REFERRAL FOR TUBE FEEDING AND PRESSURE INJURY SAM REID RD
--- NOTE | 2021-11-18 11:44 | NUR ---
ASKED DR. BRYANT IF WE CAN CHANGE DEAL CATHETER TO CONDOM CATHETER AND HE SAID TO KEEP THE DEAL CATHETER.
[2021-11-18] MEDS: POTASSIUM CHLORIDE 40 MEQ, LIDOCAINE MPF 1% 25 MG in NACL 0.9% 250 ML IV PRN (11:45)
[2021-11-18 12:00] VITALS: BP 129/79
[2021-11-18 12:12] LABS: PROTHROMBIN TIME 9.9 secs (10.8-13.4)
[2021-11-18 12:23] LABS: CHOL/HDL RATIO 5.7 (1-4.5); FREE T4 (FREE THYROXINE) 0.76 ng/dL (0.76-1.46); MAGNESIUM 2.3 mg/dL (1.8-2.4); PHOSPHORUS 4.3 mg/dL (2.5-4.9); THYROID STIMULATING HORMONE 6.73 uIU/mL (0.34-3.74)
--- NOTE | 2021-11-18 13:40 | NUR ---
DAUGHTER AT BED SIDE. PATIENT ON STABLE CONDITION NOT RESPONDING TO VERBAL STIMULI. KEEP HEAD OF BED ELEVATED FOR ASPIRATION PRECAUTION.
--- NOTE | 2021-11-18 14:48 | NUR ---
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 PATIENT HAS A HX OF CVA, SEIZURE, HTN, AND CEREBRAL NEOPLASM. CXR SHOWED SMALL RIGHT PLEURAL EFFUSION. RAPID COVID TEST NEGATIVE. CT HEAD AND CT FACIAL SHOWED EXTREMELY LARGE IRREGULAR HETEROGENEOUSLY ENHANCING MASS IN THE RIGHT HEMICRANIUM. ON NON-REBREATHER MINA SATING 100% ADMINISTERED IVF, IV ABX VANCOMYCIN, ROCEPHIN AND CONTINUED HOME MEDS. CONSULTED WITH ID, PULMO AND NEPHRO. DC PLAN TO RETURN TO [facility] WHEN STABLE. CM TO FOLLOW Addendum: 11/19/21 at 1639 by Alejandra Jasmine RN DC PLANNING: PATIENT HAS AN ORDER TO GO TO HIGHER LEVEL OF CARE FOR NEURO SURGEON TO [facility] FAXED TO [phone] CM TO FOLLOW Addendum: 11/19/21 at 1654 by Alejandra Jasmine RN DC PLANNING: CALLED [facility] SPOKE WITH RODDY NDIAYE STATED ER PATIENT IS AWAITING FOR THE TELE BED HOWEVER WILL REVIEW THE PAPERWORK AND WILL CALL BACK. SHE ALSO TRANSFERRED ME TO ER TO ASK WHO IS THE HOSPITALIST, SPOKE WITH MIGUELITO STATED DR VALDEZ IS THE HOSPITALIST AND TO CALL [phone] . CM TO FOLLOW N Addendum: 11/19/21 at 1709 by Alejandra Jasmine RN DC PLANNING: CALLED PATIENT SPOKE WITH JOHN AND JACKIE DAUGHTER STATED HE HAS A BRAIN SURGERY [address] EUNICE ARNDT AND AGREED TO BE TRANSFERRED TO [facility]. CM TO FOLLOW Addendum: 11/20/21 at 1618 by Alejandra Jasmine RN DC PLANNING: CALLED [facility] ZELDA SPOKE WITH KRISTA STATED THEY DON'T HAVE A BED AT THIS TIME WILL CALL BACK ONCE BED AVAILABLE. CALLED PT'S DAUGHTER AND PT'S DISCUSSED THAT TO TRY TO REQUEST OTHER HOSPITAL PER DAUGHTER WILL CALL DR ARNDT'S OFFICE AND ASK HIM FOR HELP TO ADMIT. CM TO FOLLOW Addendum: 11/21/21 at 1156 by Alejandra Jasmine RN DC PLANNING: RECEIVED A CALL FROM [facility] RODDY NDIAYE, SPOKE WITH IRIS STATED THEY DECLINED THE CASE BECAUSE DR CHRIST HOUSE NEUROSURGEON RECOMMENDING HOSPICE EVALUATION AND STATED PATIENT HAS TO GO BACK TO THE HOSPITAL WHERE HE HAD A BRAIN SURGERY BEFORE OR SEND THE CD TO DR ARNDT'S OFFICE. CALLED [facility] ZELDA STATED PT HAS A BRAIN SURGERY ON DECEMBER [address] ARNDT, BEFORE REACHING DR ARNDT PEER TO PEER HAS TO BE DONE WITH DR FALL. SHE PROVIDED HIS [id number]. DR PEDRO WILL CALL DR EUFEMIA DUNCAN. CM TO FOLLOW. Addendum: 11/21/21 at 1545 by Alejandra Jasmine RN DC PLANNING: CALLED [place] RODDY NDIAYE SPOKE WITH JAVIER NOTIFIED HER THAT THE NUMBER FOR DR FALL ARE WRONG, RODDY NDIAYE DON'T LOOK FOR ACCEPTING DR IT HAS TO BE ER AND SHE TRANSFERRED ME TO ER TO ASK FOR THE CASING WORKER FOR MEDICARE PATIENT PER ER NURSE DR BETH KLINE IS CASING WORKER THE NUMBER IS [phone] AND HIS OFFICE [phone] LOMBARDI WILL TRY TO CALL. CALLED DR ARNDT 'S OFFICE [phone] SPOKE WITH GARETH NOTIFIED HER THAT PT'S NEEDS TO BE TRANSFERRED TO [place] FOR NEURO SURGEON EVALUATION AFTER A BRIEF HOLD GARETH REQUESTED THE CT RESULT TO BE FAXED TO [phone] AND REQUESTED THE ACTUAL IMAGING CD TO BE DELIVERED. THE CD DELIVERED BY OUR CLIENT SERVICES ANALYST TO THE ADDRESS OF [facility] CARO [address]ER[address] ARNDT IS GOING TO [facility] FAXED ALL PAPERWORK. CM TO FOLLOW
--- NOTE | 2021-11-18 15:47 | NUR ---
11/18/21 RD INITIAL ASSESSMENT COMPLETED PLEASE REFER TO NUTRITION ASSESSMENT UNDER CARE ACTIVITY FOR ESTIMATED NUTRITIONAL NEEDS. 1. CONTINUE VITAL AF 1.2 @ 35 ML/HR WITH FWF 100 ML Q6H PER MD 2. RECOMMEND RUTH BID PER RD PROTOCOL -WITH RUTH BID, PT WILL RECEIVE 1168 KCAL AND 63 GM PROTEIN, MEETING 53 % ESTIMATED KCAL AND 72% ESTIMATED PROTEIN NEEDS; NOT ADEQUATE 3. WHEN/IF MEDICALLY APPROPRIATE, RECOMMEND INCREASING THE GOAL RATE TO 55 ML/HR TOLERATED -FWF: 200 ML Q6H OR PER MD -AT GOAL RATE, PT WILL RECEIVE > 75% ESTIMATED KCAL AND 100% ESTIMATED PROTEIN NEEDS 4. MONITOR GASTRIC RESIDUALS AND NUTRITION-RELATED LAB VALUES 5. RD TO FOLLOW-UP 2-3 DAYS, HIGH RISK SAM REID RD
--- NOTE | 2021-11-18 15:48 | NUR ---
CHANGE AND REPOSITIONED TOLERATED WELL. VITAL SIGN STABLE. ALL SAFETY MEASURE IN PLACE.
[2021-11-18 16:00] VITALS: BP 127/83
--- NOTE | 2021-11-18 18:00 | NUR ---
PATIENT ON STABLE CONDITION. NO ADVERSE REACTION NOTED ON ANTIBIOTIC THERAPY. GTUBE FEEDING TOLERATED WELL. NO NAUSEA OR VOMITING. WITH MINIMAL RESIDUAL.
--- NOTE | 2021-11-18 19:30 | NUR ---
RECEIVED BEDSIDE REPORT FROM DAY SHIFT RN FOR CONTINUITY OF CARE. PT IS SLEEPING IN BED COMFORTABLY. PT IS ON NON-REBREATHER 15L. FEEDING RUNNING PER MD ORDER. IVF RUNNING PER MD ORDER. PT IS NOT IN ANY DISTRESS. BREATHING RHYTHMIC AND UNLABORED. BY BEDSIDE. BED AT THE LOWEST POSITION. ALL SAFETY MEASURES TAKEN. WILL CONTINUE TO MONITOR THE PT.
--- NOTE | 2021-11-18 19:36 | NUR ---
PATIENT ON STABLE CONDITION ENDORSE TO SHOTWELD OPERATOR NURSE FOR CONTINUITY OF CARE.
[2021-11-18 20:00] VITALS: BP 126/80
[2021-11-18] MEDS: CEFEPIME 2,000 MG in DEXTROSE 5% 100 ML IV SCH (20:45)
[2021-11-18] MEDS: metroNIDAZOLE 500 MG/NS PREMIX 100 ML IV SCH (20:45)
--- NOTE | 2021-11-18 20:50 | NUR ---
ALL DUE MEDS GIVEN. NO ADVERSE REACTION NOTED. WILL CONTINUE TO MONITOR THE PT.
--- NOTE | 2021-11-18 23:45 | NUR ---
PT IS SLEEPING IN BED COMFORTABLY. PT IS ON NC 4L SATING 96%. PT IS NOT IN ANY DISTRESS. BREATHING RHYTHMIC AND UNLABORED. IVF RUNNING PER MD ORDER. FEEDING RUNNING PER MD ORDER. BED AT THE LOWEST POSITION. HEAD OF BED RAISED. ALL SAFETY MEASURES TAKEN. WILL CONTINUE TO MONITOR THE PT.
[2021-11-19] VITALS: BP 130/77
--- NOTE | 2021-11-19 01:40 | NUR ---
PT IS SLEEPING IN BED COMFORTABLY. PT IS ON NC 4L SATING 95%. PT IS NOT IN ANY DISTRESS. BREATHING RHYTHMIC AND UNLABORED. IVF RUNNING PER MD ORDER. FEEDING RUNNING PER MD ORDER. BED AT THE LOWEST POSITION. HEAD OF BED RAISED. ALL SAFETY MEASURES TAKEN. WILL CONTINUE TO MONITOR THE PT.
[2021-11-19 04:00] VITALS: BP 136/90
[2021-11-19] MEDS: metroNIDAZOLE 500 MG/NS PREMIX 100 ML IV SCH ×3 (04:11→20:28)
[2021-11-19] MEDS: CEFEPIME 2,000 MG in DEXTROSE 5% 100 ML IV SCH ×3 (04:12→21:30)
[2021-11-19] MEDS: NACL 0.45% 1,000 ML IV SCH ×2 (04:12→14:06)
--- NOTE | 2021-11-19 04:15 | NUR ---
ALL DUE MEDS GIVEN. NO ADVERSE REACTION NOTED. WILL CONTINUE TO MONITOR THE PT.
[2021-11-19 06:38] LABS: ANION GAP 12.8 (8-16); CARBON DIOXIDE 22.3 mmol/L (21-32); CREATININE 0.5 mg/dL (0.6-1.3); POTASSIUM 3.1 mmol/L (3.5-5.1)
[2021-11-19 06:48] LABS: BASOPHILS % (AUTO) 0.2 % (0.0-2.0); EOSINOPHILS # (AUTO) 0.1 K/uL (0-0.4); EOSINOPHILS % (AUTO) 0.6 % (0.0-4.0); HEMATOCRIT 30.9 % (36-52); HEMOGLOBIN 9.9 g/dL (12.0-18.0); LYMPHOCYTES # (AUTO) 1.3 K/uL (2.0-11.5); LYMPHOCYTES % (AUTO) 12.9 % (20.5-51.1); MEAN CORPUSCULAR HEMOGLOBIN 28 pg (27-31); MEAN CORPUSCULAR HGB CONC 32 g/dL (33-37); MONOCYTES # (AUTO) 0.3 K/uL (0.8-1.0); MONOCYTES % (AUTO) 3.1 % (1.7-9.3); NEUTROPHILS # (AUTO) 8.3 K/uL (1.8-7.7); NEUTROPHILS % (AUTO) 83.2 % (42.2-75.2); PLATELET COUNT (AUTO) 221 K/uL (140-450); RED BLOOD CELL COUNT(AUTO) 3.47 MIL/uL (4.20-6.10); RED CELL DISTRIBUTION WIDTH 16.6 % (11.6-13.7)
[2021-11-19 07:09] LABS: T4 (THYROXINE) 5.6 ug/dL (4.5-12.0)
--- NOTE | 2021-11-19 07:13 | NUR ---
ENDORSED PT TO DAY SHIFT RN FOR CONTINUITY OF CARE. PT IS STABLE.
[2021-11-19 08:06] VITALS: BP 138/88
[2021-11-19] MEDS: ACETAZOLAMIDE SOD 250 MG TAB PO SCH ×2 (09:00→20:55)
[2021-11-19] MEDS: VANCOMYCIN 1,000 MG in DEXTROSE 5% 250 ML IV SCH ×2 (09:37→22:00)
[2021-11-19] MEDS: PANTOPRAZOLE 40 MG TABEC PO SCH (09:37)
--- NOTE | 2021-11-19 10:12 | NUR ---
WOUND CARE EVALUATION NOTE: SKIN ASSESSMENT DONE WITH PRIMARY RN GREGG ON THIS 61 Y/O PT ADMITTED FROM SNF TO [facility] WITH MULTIPLE PRESSURE INJURIES. PAST MEDICAL HISTORY: CVA, GLAUCOMA, CHRONIC PAIN, HYPERTENSION, SEIZURE DISORDER AND CEREBRAL NEOPLASM. ALL ABOVE INFORMATION OBTAINED FROM ADMISSION H&P. PT IS AWAKE. SKIN IS WARM AND DRY. BLE NO HAIR GROWTH, +1 EDEMA TO BILATERAL LOWER LEGS. BILATERAL DORSAL PEDAL PULSES PRESENT AND NORMAL. AT BED SIDE AND DAUGHTER JACKIE ON PHONE, POC DISCUSSED, DAUGHTER TRANSLATE IN CZECH, ALSO ASKED IF LIKE TO SEE SACRAL WOUND, REFUSED. BOTH AND DAUGHTER VERBALIZES UNDERSTANDING POC. POC DISCUSSED WITH DR. PEDRO. PER DR. PEDRO TO HAVE DR. OTERO FOR CONSULTATION SACRAL DEBRIDEMENT. INTEGUMENTARY: -LEFT HEEL PRESSURE INJURY STAGE 2 1X1CM INTACT BLISTER WITH CLEAR FLUID CARMINA-WOUND SKIN INTACT NON-BLANCHABLE REDNESS, MUSHY, FURTHER DAMAGE INDICATED -SACRALCOCCYX PRESSURE INJURY STAGE 4 WITH 8X11X0.3 CM 60% GALVAN/BROWN SLOUGH TISSUE, 20 % RED GRANULATION TISSUE, 20 % SOFT YELLOW SLOUGH TISSUE, WOUND EDGE FLAT ATTACHED, WOUND BED MOIST, MILD ODOR, CARMINA-WOUND SKIN MOIST, DENUDED WITH BLANCHABLE REDNESS RECOMMENDATIONS: -SURGEON CONSULT SACRALCOCCYX DEBRIDEMENT -APPLY HYDRAGUARD TO R/L GROINS EXTENDED TO PERINEUM BID AND PRN IF SOILING -CLEANSE SACRALCOCCYX WITH WOUND CLEANSING SOLUTION AND APPLY THERAHONEY GEL TO WOUND BED AND HYDRAGUARD TO CARMINA WOUND SKIN COVER WITH FOAM DRESSING QD AND PRN IF SOILING -APPLY HEEL RAISERS -POSITIONING: TURN AND REPOSITION PATIENT Q 2H OR SOONER USE PILLOWS TO KEEP BONY PROMINENCES FROM DIRECT CONTACT WITH SURFACES USE REPOSITIONING WEDGES TO PROVIDE 30-DEGREE ANGLE FOR SIDE LYING POSITIONS OFFLOADING OR FOAM DRESSING TO ALL TUBING TO PREVENT MEDICAL DEVICES RELATED PRESSURE INJURY -RE-ASSESSMENT Q SHIFT AND MANAGING INCONTINENCE MONITOR SKIN CONDITION DURING POSITION CHANGE DO NOT MASSAGE REDNESS, BONY PROMINENCES, DO NOT USE DONUT-TYPE DEVICES FREQUENT CARMINA-CARE AND PROVIDE BARRIER CREAMS PRN IF SOILING MOISTURE CONTROL BY OFFER BED MOREL/URINAL /ABSORBENT PAD TO WICK AND HOLD MOISTURE. KEEP SKIN DRY AND PROTECT FROM FRICTION -MANAGE FRICTION/SHEAR/MOBILITY KEEP HOB AT THE LOWEST LEVEL OF ELEVATION NO MORE THAN 30 DEGREE UNLESS OTHERWISE CONTRAINDICATED USE LIFT SHEET OR TRANSFER DEVICE TO MOVE PATIENT AND PREVENT LATERAL SHEER. PROTECT HEELS, ELBOWS BONY PROMINENCES WITH SKIN BERRIES OR FOAM DRESSING IF EXPOSED TO FRICTION OFFLOAD BILATERAL HEELS BY PLACING PILLOWS UNDER CALVES AT ALL TIMES, UNLESS OTHERWISE CONTRAINDICATED -PRESSURE REDISTRIBUTION SURFACE THERAPY-NOAH ISOFLEX ALEA -NUTRITION: PLEASE FOLLOW RD RECOMMENDATIONS AND OFFER NUTRITION SUPPLEMENTS IF ORDERED.
[2021-11-19] MEDS: POTASSIUM CHLORIDE 40 MEQ, LIDOCAINE MPF 1% 25 MG in NACL 0.9% 250 ML IV PRN (10:25)
--- NOTE | 2021-11-19 10:40 | NUR ---
PT GIVEN IV POTASSIUM TO REPLACE LOW K LEVELS. PT TOLERATING AT BEDSIDE. UPDATES GIVEN TO PT'S AND DAUGHTER.
--- NOTE | 2021-11-19 10:40 | NUR ---
RECEIVED REPORT FROM SENIOR NET APPLICATION DEVELOPER RN. PT RESTING COMFORTABLY IN BED, WILL CONTINUE TO MONITOR.
[2021-11-19 12:00] VITALS: BP 125/86
[2021-11-19] MEDS: THERAHONEY GEL 42.5 GM TP SCH (13:18)
[2021-11-19] MEDS: HYDRAGUARD CREAM TP SCH (13:18)
[2021-11-19 16:00] VITALS: BP 129/82
--- NOTE | 2021-11-19 18:56 | NUR ---
PT IN STABLE CONDITION, FAMILY AT BEDSIDE, SAFETY MEASURES IN PLACE. WILL ENDORSE TO CUSHION WORKER RN.
--- NOTE | 2021-11-19 19:19 | NUR ---
ENDORSED CARE TO COORDINATOR OF HEALTH SERVICES RN, PT IN STABLE CONDITION.
--- NOTE | 2021-11-19 19:20 | NUR ---
RECEIVED REPORT FROM AM NURSE. DISCUSSED POC FOR CONTINUITY OF CARE.
[2021-11-19 20:00] VITALS: BP 137/86
--- NOTE | 2021-11-19 21:00 | NUR ---
HS MEDS GIVEN IV AND VIA G-TUBE. NO RESIDUAL. VANCO TROUGH DRAWN AT 2O:20. WITHIN NORMAL LIMITS. RESULTS 11.5 @ 2150. HUNG VANCO AT 2200. IV SITE LAC PATENT. ALL SAFETY MEASURES IN PLACE. CONTINUE TO MONITOR.
[2021-11-20] VITALS: BP 134/85
[2021-11-20] MEDS: HYDRAGUARD CREAM TP SCH ×2 (01:45→12:49)
[2021-11-20 04:00] VITALS: BP 126/92
[2021-11-20] MEDS: CEFEPIME 2,000 MG in DEXTROSE 5% 100 ML IV SCH ×3 (05:00→21:40)
--- NOTE | 2021-11-20 05:00 | NUR ---
SACRAL WOUND DRESSING REMAINS D&I. TURNED AND REPOSITIONED Q 2 HRS. PT SWEATING. T- 98.9 COOL COMPRESSES APPLIED. SKIN CARE PROVIDED. PT APHASIC. NAD. ALL SAFETY MEASURES IN PLACE. CONTINUE TO MONITOR.
[2021-11-20] MEDS: metroNIDAZOLE 500 MG/NS PREMIX 100 ML IV SCH ×3 (05:05→20:07)
[2021-11-20] MEDS: NACL 0.45% 1,000 ML IV SCH ×3 (05:27→20:45)
[2021-11-20 06:41] LABS: BASOPHILS % (AUTO) 0.1 % (0.0-2.0); EOSINOPHILS % (AUTO) 0.5 % (0.0-4.0); HEMATOCRIT 32.2 % (36-52); HEMOGLOBIN 10.6 g/dL (12.0-18.0); LYMPHOCYTES # (AUTO) 1.2 K/uL (2.0-11.5); LYMPHOCYTES % (AUTO) 11.7 % (20.5-51.1); MEAN CORPUSCULAR HEMOGLOBIN 29 pg (27-31); MEAN CORPUSCULAR HGB CONC 33 g/dL (33-37); MEAN CORPUSCULAR VOLUME 87.5 fL (80-94); MONOCYTES # (AUTO) 0.3 K/uL (0.8-1.0); MONOCYTES % (AUTO) 2.9 % (1.7-9.3); NEUTROPHILS # (AUTO) 8.5 K/uL (1.8-7.7); NEUTROPHILS % (AUTO) 84.8 % (42.2-75.2); PLATELET COUNT (AUTO) 227 K/uL (140-450); RED BLOOD CELL COUNT(AUTO) 3.68 MIL/uL (4.20-6.10); RED CELL DISTRIBUTION WIDTH 16.7 % (11.6-13.7)
[2021-11-20 06:59] LABS: ANION GAP 14.8 (8-16); CARBON DIOXIDE 19.2 mmol/L (21-32); CREATININE 0.5 mg/dL (0.6-1.3)
--- NOTE | 2021-11-20 07:30 | NUR ---
ENDORSED REPORT TO AM NURSE. POC DISCUSSED FOR CONTINUITY OF CARE.
--- NOTE | 2021-11-20 07:41 | NUR ---
RECEIVED REPORT FROM PHARMACY DELIVERY DRIVER RN, PT IN STABLE CONDITION. WILL CONTINUE TO MONITOR.
[2021-11-20] MEDS ORDERED: VANCOMYCIN 1,250 MG in DEXTROSE 5% 250 ML IV SCH (08:38)
[2021-11-20 09:00] VITALS: BP 132/87
[2021-11-20] MEDS ORDERED: levETIRAcetam 100 MG/ML ORASYR PO SCH (09:00)
[2021-11-20] MEDS: VANCOMYCIN 1,250 MG in DEXTROSE 5% 250 ML IV SCH ×2 (09:16→21:00)
[2021-11-20] MEDS: ACETAZOLAMIDE SOD 250 MG TAB PO SCH ×2 (09:29→20:26)
[2021-11-20] MEDS: PANTOPRAZOLE 40 MG TABEC PO SCH (09:30)
[2021-11-20] MEDS: METOPROLOL 25 MG TAB PO SCH ×2 (09:30→20:27)
[2021-11-20 12:00] VITALS: BP 128/86
[2021-11-20] MEDS: POTASSIUM CHLORIDE 40 MEQ, LIDOCAINE MPF 1% 25 MG in NACL 0.9% 250 ML IV PRN (12:12)
[2021-11-20] MEDS: THERAHONEY GEL 42.5 GM TP SCH (12:49)
[2021-11-20] MEDS: levETIRAcetam 1,000 MG in NACL 0.9% 100 ML IV SCH ×2 (14:44→22:00)
--- NOTE | 2021-11-20 15:57 | NUR ---
11/20/21 RD FOLLOW UP COMPLETED PLEASE REFER TO NUTRITION ASSESSMENT UNDER CARE ACTIVITY FOR ESTIMATED NUTRITIONAL NEEDS. 1. RECOMMEND INCREASING VITAL AF 1.2 TF GOAL RATE TO 55 ML/HR TOLERATED -FWF: 100 ML Q6H OR PER MD -AT GOAL RATE, PT WILL RECEIVE > 75% ESTIMATED KCAL AND 100% ESTIMATED PROTEIN NEEDS 2. CONTINUE RUTH BID PER RD PROTOCOL 3. MONITOR GASTRIC RESIDUALS AND NUTRITION-RELATED LAB VALUES 4. RD TO FOLLOW-UP 2-3 DAYS, HIGH RISK SONALI REID RD Addendum: 11/21/21 at [address] RECOMMENDED GLUCERNA 1.2 WITH A GOAL RATE OF 55 ML/HR D/T INCREASED BLOOD GLUCOSE LEVELS. AGUILAR SPOKE WITH RN AND RN ACKNOWLEDGED. AGUILAR WILL FOLLOW UP.
[2021-11-20 16:00] VITALS: BP 126/92
--- NOTE | 2021-11-20 16:57 | NUR ---
PT'S HR MAINTAINING ABOVE 125, INFORMED , NEW ORDERS FOR LOPRESSOR 5MG X1, STAT EKG, ORDERS PLACED.
[2021-11-20] MEDS ORDERED: METOPROLOL 5 MG/5 ML VIAL IV SCH (17:00)
--- NOTE | 2021-11-20 17:12 | NUR ---
CARDIO CONSULT PLACED PER PRIMARY MD. DR. SMITH INFORMED.
--- NOTE | 2021-11-20 18:06 | NUR ---
DEAL CATH REMOVED, CONDOM CATH PLACED.
--- NOTE | 2021-11-20 19:10 | NUR ---
RECEIVED REPORT FROM AM NURSE. DISCUSSED POC FOR CONTINUITY OF CARE.
[2021-11-20 20:00] VITALS: BP 129/84
--- NOTE | 2021-11-20 20:26 | NUR ---
HS MEDS GIVEN VIA IV AND G-TUBE. PT TOLERATED PROCEDURE WELL. RR 20 -22 REMAINS TACHYPNEIC. T- 98.9 COOL COMPRESSES APPLIED TO FOREHEAD AND BACK OF NECK. ALL SAFETY MEASURES IN PLACE. CONTINUE FREQ ROUNDS..
[2021-11-20] MEDS ORDERED: BRIMONIDINE TARTRATE 0.2% OP 5 ML BTL OP SCH (21:00)
--- NOTE | 2021-11-20 22:00 | NUR ---
PT TOLERATED IV ANTIBIOTICS. TURNED AND REPOSITIONED Q 2HRS. FREQ ROUNDS.
[2021-11-21] VITALS: BP 129/93
[2021-11-21] MEDS: HYDRAGUARD CREAM TP SCH ×2 (01:32→13:57)
--- NOTE | 2021-11-21 02:37 | NUR ---
PT HAVING HIGH HEART RATE ON TELE MONITOR. 125 TO 128. REPOSITIONED INCONTINENT OF URINE NEW CONDOM CATH APPLIED. INCONTINENT OF LARGE FORMED SOFT BM. COOL COMPRESSES CONTINUED. HR NOW 121. CONTINUE TO MONITOR.
[2021-11-21 04:00] VITALS: BP 130/86
--- NOTE | 2021-11-21 04:30 | NUR ---
0NE DOSE OF VANCOMYCIN 1,250MGIN D5NS@ 125CC/HR MISSED AT 2100 11/20/2021. IN FORMED OUTSIDE PHARMACY ABOUT SITUATION. TOLD LAB TO STOP CURRENT VANCO TROUGH SCHEDULED FOR 08:15 AM 11/21/2021. HUNG VANCOMYCIN 1250MG IN D5 250 ML NOW AT 0430 AM. UNABLE TO HANG SCHEDULED 05:00 MEDS.
[2021-11-21] MEDS: VANCOMYCIN 1,250 MG in DEXTROSE 5% 250 ML IV SCH ×2 (04:58→17:29)
[2021-11-21] MEDS: metroNIDAZOLE 500 MG/NS PREMIX 100 ML IV SCH ×3 (05:00→19:25)
[2021-11-21] MEDS: CEFEPIME 2,000 MG in DEXTROSE 5% 100 ML IV SCH ×3 (05:00→16:19)
[2021-11-21] MEDS: levETIRAcetam 1,000 MG in NACL 0.9% 100 ML IV SCH ×3 (05:00→17:57)
[2021-11-21 06:26] LABS: BASOPHILS % (AUTO) 0.2 % (0.0-2.0); EOSINOPHILS % (AUTO) 0.2 % (0.0-4.0); HEMATOCRIT 33.8 % (36-52); HEMOGLOBIN 10.8 g/dL (12.0-18.0); LYMPHOCYTES # (AUTO) 2.2 K/uL (2.0-11.5); LYMPHOCYTES % (AUTO) 15.9 % (20.5-51.1); MEAN CORPUSCULAR HEMOGLOBIN 28 pg (27-31); MEAN CORPUSCULAR HGB CONC 32 g/dL (33-37); MEAN CORPUSCULAR VOLUME 87.8 fL (80-94); MONOCYTES # (AUTO) 0.4 K/uL (0.8-1.0); MONOCYTES % (AUTO) 2.7 % (1.7-9.3); NEUTROPHILS # (AUTO) 11.2 K/uL (1.8-7.7); PLATELET COUNT (AUTO) 251 K/uL (140-450); RED BLOOD CELL COUNT(AUTO) 3.85 MIL/uL (4.20-6.10); RED CELL DISTRIBUTION WIDTH 16.9 % (11.6-13.7); WHITE BLOOD COUNT (AUTO) 13.8 K/uL (4.8-10.8)
[2021-11-21] MEDS: NACL 0.45% 1,000 ML IV SCH ×2 (06:45→16:25)
[2021-11-21 07:25] LABS: ANION GAP 16.4 (8-16); CARBON DIOXIDE 16.5 mmol/L (21-32); CREATININE 0.7 mg/dL (0.6-1.3)
--- NOTE | 2021-11-21 07:25 | NUR ---
MISSED DOSE DUE 2100 VANCO TIV , RE ARRANGE VANCO TROUGH SCHEDULE - INFORMED DR. CLARK .
--- NOTE | 2021-11-21 07:30 | NUR ---
RECEIVED BEDSIDE REPORT FROM TICK ERADICATOR RN FOR CONTINUITY OF CARE. PT IS APHASIC. PT IS ON 4 L NC, TACHYAPNEIC AND O2 SATURATION AT 99%. SKIN IS WARM, DRY, AND NON-INTACT. NOTED SACRAL WOUND AND LEFT HEEL. FEEDING RUNNING PER MD ORDER. IVF RUNNING PER MD ORDER. PLAN OF CARE DISCUSSED. BED AT THE LOWEST POSITION. ALL SAFETY MEASURES TAKEN. WILL CONTINUE TO MONITOR.
[2021-11-21 07:33] LABS: POTASSIUM 2.9 mmol/L (3.5-5.1)
--- NOTE | 2021-11-21 07:55 | NUR ---
PHARMACIST INFORMED - ABOUT MISSED MEDICATION AND CANCELLED VANCO TROUGH - MELISSA OF PHARMACY - WILL RE ARRANGE THE FREQ OF THE MISSED MEDS - ENDORSED TO HUA CARLSON ABOUT IT - HUA RN VERBALIZES UNDERSTANDING .
[2021-11-21 08:00] VITALS: BP 143/97
[2021-11-21] MEDS: METOPROLOL 25 MG TAB PO SCH ×2 (09:20→21:00)
[2021-11-21] MEDS: ACETAZOLAMIDE SOD 250 MG TAB PO SCH ×2 (09:20→21:00)
[2021-11-21] MEDS: PANTOPRAZOLE 40 MG TABEC PO SCH (09:20)
--- NOTE | 2021-11-21 09:20 | NUR ---
ALL SCHEDULED MEDS GIVEN. PT IS STABLE. NO DISTRESS NOTED. WILL CONTINUE TO MONITOR
[2021-11-21] MEDS ORDERED: metroNIDAZOLE 500 MG/NS PREMIX 100 ML IV SCH (11:00)
--- NOTE | 2021-11-21 12:00 | NUR ---
ALL SCHEDULED MEDS GIVEN. PT IS STABLE. NO DISTRESS NOTED. WILL CONTINUE TO MONITOR.
[2021-11-21 13:39] VITALS: BP 139/94
[2021-11-21] MEDS: THERAHONEY GEL 42.5 GM TP SCH (13:56)
[2021-11-21] MEDS: POTASSIUM CHLORIDE 40 MEQ, LIDOCAINE MPF 1% 25 MG in NACL 0.9% 250 ML IV PRN (14:11)
--- NOTE | 2021-11-21 15:20 | NUR ---
RT AT BEDSIDE OBTAINING ABG SAMPLE
--- NOTE | 2021-11-21 15:37 | NUR ---
CALLED DR. NOLVIA PEDRO AT [facility] [phone] TO REVIEW ABG SAMPLE REPORT EXCHANGE TO PAGE FOREMENTIONED
--- NOTE | 2021-11-21 15:40 | NUR ---
RETURN CALL FROM DR. NOLVIA PEDRO REVIEWED ABG SAMPLE REPORT NO NEW ORDERS
[2021-11-21 16:00] VITALS: BP 140/95
[2021-11-21] MEDS ORDERED: METOPROLOL 25 MG TAB PO SCH (16:00)
--- NOTE | 2021-11-21 18:00 | NUR ---
ALL SCHEDULED MEDS GIVEN. PT IS STABLE. NO DISTRESS NOTED. WILL CONTINUE TO MONITOR.
[2021-11-21 20:00] VITALS: BP 131/87
--- NOTE | 2021-11-21 20:00 | NUR ---
ENDORSED TO GERIATRIC PHYSICAL THERAPIST NURSE FOR CONTINUITY OF CARE. PT IS STABLE
[2021-11-21] MEDS: BRIMONIDINE TARTRATE 0.2% OP 5 ML BTL OP SCH (21:00)
[2021-11-22] VITALS (7 sets, daily range): BP systolic 117–148; BP diastolic 77–94
[2021-11-22] MEDS: levETIRAcetam 1,000 MG in NACL 0.9% 100 ML IV SCH ×3 (01:00→16:13)
[2021-11-22] MEDS: CEFEPIME 2,000 MG in DEXTROSE 5% 100 ML IV SCH ×3 (01:00→17:40)
[2021-11-22] MEDS: HYDRAGUARD CREAM TP SCH ×2 (01:00→13:50)
[2021-11-22] MEDS: metroNIDAZOLE 500 MG/NS PREMIX 100 ML IV SCH ×3 (03:00→18:08)
[2021-11-22] MEDS: VANCOMYCIN 1,250 MG in DEXTROSE 5% 250 ML IV SCH (04:30)
[2021-11-22] MEDS: METOPROLOL 25 MG TAB PO SCH ×3 (05:00→20:21)
--- NOTE | 2021-11-22 05:02 | NUR ---
PATIENT NOT ALERT NOT RESPONSIVE TO STIMULI SINUS TACT ON MONITOR LUNGS DIMINISH SAT. 99%. PATIENT IS FLACCID TOTAL CARE PATIENT PATIENT HAS G-TUBE STARTED GLUCERNA AT 0000 10CC NOW AT 20CC NO RESIDUAL. HAS 100CC Q. 6 WATER FLUSH. TEMP 97.9 THIS A.M.PATIENT IS INCONT. HAS 02 ON AT 4 LITERS N/C SAT 99%. PATIENT ON MULTIPLE IVPB,S PATIENT IS A DNR. NO DISTRESS NOTED. PATIENT WITH NO RESIDUALS WHEN CHECKED EVERY FOUR HOURS.
[2021-11-22 07:05] LABS: HEMATOCRIT 32.9 % (36-52); HEMOGLOBIN 10.7 g/dL (12.0-18.0)
[2021-11-22 07:07] LABS: ANION GAP 14.5 (8-16); CARBON DIOXIDE 18.5 mmol/L (21-32); CREATININE 0.7 mg/dL (0.6-1.3)
--- NOTE | 2021-11-22 07:32 | NUR ---
RECEIVED BEDSIDE REPORT FROM RESIDENTIAL AIDE RN FOR CONTINUITY OF CARE. PT IS APHASIC. PT IS ON 4 L NC, TACHYAPNEIC AND O2 SATURATION AT 98%. SKIN IS WARM, DRY, AND NON-INTACT. NOTED SACRAL WOUND AND LEFT HEEL. FEEDING RUNNING PER MD ORDER. IVF RUNNING PER MD ORDER. PLAN OF CARE DISCUSSED. BED AT THE LOWEST POSITION. ALL SAFETY MEASURES TAKEN. WILL CONTINUE TO MONITOR.
[2021-11-22] MEDS: NACL 0.45% 1,000 ML IV SCH ×3 (07:48→22:45)
[2021-11-22 08:33] LABS: BASOPHILS # (AUTO) 0.1 K/uL (0.00-0.22); BASOPHILS % (AUTO) 0.4 % (0.0-2.0); EOSINOPHILS # (AUTO) 0.1 K/uL (0-0.4); EOSINOPHILS % (AUTO) 0.5 % (0.0-4.0); LYMPHOCYTES # (AUTO) 1.6 K/uL (2.0-11.5); LYMPHOCYTES % (AUTO) 13.6 % (20.5-51.1); MEAN CORPUSCULAR HEMOGLOBIN 28 pg (27-31); MEAN CORPUSCULAR HGB CONC 31 g/dL (33-37); MEAN CORPUSCULAR VOLUME 89.5 fL (80-94); MONOCYTES # (AUTO) 0.4 K/uL (0.8-1.0); MONOCYTES % (AUTO) 3.5 % (1.7-9.3); NEUTROPHILS # (AUTO) 9.9 K/uL (1.8-7.7); PLATELET COUNT (AUTO) 225 K/uL (140-450); RED BLOOD CELL COUNT(AUTO) 3.83 MIL/uL (4.20-6.10); RED CELL DISTRIBUTION WIDTH 16.7 % (11.6-13.7); WHITE BLOOD COUNT (AUTO) 12.1 K/uL (4.8-10.8)
--- NOTE | 2021-11-22 09:42 | NUR ---
(11/22/21) RD FOLLOW UP COMPLETED PLEASE REFER TO NUTRITION PROGRESS NOTE UNDER CARE ACTIVITY FOR ESTIMATED NUTRITION NEEDS. RD RECOMMENDATIONS: 1. CONSIDER INCREASING TF GLUCERNA 1.2 GOAL RATE TO 65 ML/HR. GLUCERNA 1.2 AT 65 ML/HR WILL PROVIDE 1560 ML TOTAL VOLUME, 1872 KCAL, 94 GM PROTEIN, AND 1255 ML FREE WATER TO MEET 85% EST KCAL NEEDS AND 85% EST UPPER-END PROTEIN NEEDS. 2. CONTINUE RUTH BID PER RD PROTOCOL 3. MONITOR GASTRIC RESIDUALS AND NUTRITION-RELATED LAB VALUES 4. RD TO FOLLOW-UP 2-3 DAYS, HIGH RISK DANGELO PEPPER, MS, RDN
[2021-11-22] MEDS: PANTOPRAZOLE 40 MG INJ VIAL IVP SCH (10:04)
[2021-11-22] MEDS: ACETAZOLAMIDE SOD 250 MG TAB PO SCH ×2 (10:07→20:21)
--- NOTE | 2021-11-22 10:15 | NUR ---
ALL SCHEDULED MEDS GIVEN. PT IS STABLE. WILL CONTINUE TO MONITOR.
[2021-11-22] MEDS: THERAHONEY GEL 42.5 GM TP SCH (13:50)
[2021-11-22] MEDS: POTASSIUM CHLORIDE 40 MEQ, LIDOCAINE MPF 1% 25 MG in NACL 0.9% 250 ML IV PRN (13:51)
--- NOTE | 2021-11-22 14:00 | NUR ---
ALL SCHEDULED MEDS GIVEN. PT IS STABLE. NO DISTRESS NOTED. WILL CONTINUE TO MONITOR.
--- NOTE | 2021-11-22 18:29 | NUR ---
ALL SCHEDULED MEDS GIVEN. PT IS STABLE. NO DISTRESS NOTED. WILL CONTINUE TO MONITOR.
--- NOTE | 2021-11-22 19:24 | NUR ---
ENDORSED TO MAIL HANDLER NURSE FOR CONTINUITY OF CARE. PT IS STABLE.
[2021-11-22] MEDS: BRIMONIDINE TARTRATE 0.2% OP 5 ML BTL OP SCH (20:20)
[2021-11-22] MEDS ORDERED: FUROSEMIDE 40 MG/4 ML VIAL IVP SCH (23:00)
[2021-11-23] MEDS: levETIRAcetam 1,000 MG in NACL 0.9% 100 ML IV SCH ×3 (00:10→16:11)
[2021-11-23] MEDS: HYDRAGUARD CREAM TP SCH ×2 (00:12→12:26)
[2021-11-23] MEDS: CEFEPIME 2,000 MG in DEXTROSE 5% 100 ML IV SCH ×3 (00:15→16:50)
[2021-11-23] MEDS: metroNIDAZOLE 500 MG/NS PREMIX 100 ML IV SCH ×3 (02:13→18:44)
[2021-11-23 04:00] VITALS: BP 135/88
[2021-11-23] MEDS: METOPROLOL 25 MG TAB PO SCH ×3 (04:03→20:36)
[2021-11-23 06:02] LABS: BASOPHILS % (AUTO) 0.1 % (0.0-2.0); EOSINOPHILS % (AUTO) 0.1 % (0.0-4.0); HEMATOCRIT 33.8 % (36-52); HEMOGLOBIN 10.7 g/dL (12.0-18.0); LYMPHOCYTES # (AUTO) 1.6 K/uL (2.0-11.5); LYMPHOCYTES % (AUTO) 11.1 % (20.5-51.1); MEAN CORPUSCULAR HEMOGLOBIN 28 pg (27-31); MEAN CORPUSCULAR HGB CONC 32 g/dL (33-37); MEAN CORPUSCULAR VOLUME 88.1 fL (80-94); MONOCYTES # (AUTO) 0.5 K/uL (0.8-1.0); MONOCYTES % (AUTO) 3.6 % (1.7-9.3); NEUTROPHILS # (AUTO) 12.4 K/uL (1.8-7.7); NEUTROPHILS % (AUTO) 85.1 % (42.2-75.2); PLATELET COUNT (AUTO) 242 K/uL (140-450); RED BLOOD CELL COUNT(AUTO) 3.83 MIL/uL (4.20-6.10); RED CELL DISTRIBUTION WIDTH 17.7 % (11.6-13.7); WHITE BLOOD COUNT (AUTO) 14.6 K/uL (4.8-10.8)
[2021-11-23 06:07] LABS: ANION GAP 15.9 (8-16); CARBON DIOXIDE 18.2 mmol/L (21-32); CREATININE 0.8 mg/dL (0.6-1.3); POTASSIUM 3.1 mmol/L (3.5-5.1)
--- NOTE | 2021-11-23 07:30 | NUR ---
RECEIVED BEDSIDE REPORT FROM RN PHYSICIAN OFFICE RN FOR CONTINUITY OF CARE. PT IS APHASIC. PT IS ON 2 L NC, TACHYAPNEIC AND O2 SATURATION AT 98%. NO RESPIRATORY DISTRESS NOTED. SKIN IS WARM, DRY, AND NON-INTACT. NOTED SACRAL WOUND AND LEFT HEEL. IV SITE ON LAC 20G AND LW 24 G. INTACT AND PATENT. FEEDING RUNNING PER MD ORDER. PLAN OF CARE DISCUSSED. BED AT THE LOWEST POSITION. ALL SAFETY MEASURES TAKEN. WILL CONTINUE TO MONITOR.
[2021-11-23 08:00] VITALS: BP 131/87
[2021-11-23] MEDS: PANTOPRAZOLE 40 MG INJ VIAL IVP SCH (09:03)
[2021-11-23] MEDS: ACETAZOLAMIDE SOD 250 MG TAB PO SCH ×2 (09:03→20:36)
--- NOTE | 2021-11-23 09:45 | NUR ---
ALL SCHEDULED MEDS GIVEN. PT IS STABLE. WILL CONTINUE TO MONITOR.
[2021-11-23 12:00] VITALS: BP 148/92
[2021-11-23] MEDS: VANCOMYCIN HCL 1.25 GM in DEXTROSE 5% 250 ML IV SCH (12:26)
[2021-11-23] MEDS: THERAHONEY GEL 42.5 GM TP SCH (12:26)
[2021-11-23] MEDS: POTASSIUM CHLORIDE 40 MEQ, LIDOCAINE MPF 1% 25 MG in NACL 0.9% 250 ML IV PRN (13:02)
--- NOTE | 2021-11-23 13:10 | NUR ---
ALL SCHEDULED MEDS GIVEN. PT IS STABLE. NO DISTRESS NOTED. WILL CONTINUE TO MONITOR.
[2021-11-23 16:00] VITALS: BP 145/88
--- NOTE | 2021-11-23 18:12 | NUR ---
ALL SCHEDULED MEDS GIVEN. PT IS STABLE. NO DISTRESS NOTED. WILL CONTINUE TO MONITOR.
--- NOTE | 2021-11-23 19:30 | NUR ---
ENDORSED TO COMPUTER INSTALLATION ENGINEER NURSE FOR CONTINUITY OF CARE. PT IS STABLE.
--- NOTE | 2021-11-23 19:35 | NUR ---
RECEIVED BEDSIDE REPORT FROM MORNING NURSE. PATIENT RESTING ON BED, BREATHING EVEN AND UNLABORED ON OXYGEN OF 2L/NC. PATIENT AWAKE WITH SPONTANEOUS EYE OPENING, DOES NOT TRACT, DOES NOT FOLLOW COMMAND, APHASIC. AT BEDSIDE VISITING. IV SITE INTACT, TKO. TUBE FEEDING OF GLUCERNA ONGOING AT 45 ML/HR WITH FWF OF 100 ML Q6H, TOLERATING WELL. SIDE RAILS UP X 2, BED LOW AND LOCKED. WILL CONTINUE TO MONITOR PATIENT.
[2021-11-23 20:00] VITALS: BP 144/92
[2021-11-23] MEDS: BRIMONIDINE TARTRATE 0.2% OP 5 ML BTL OP SCH (20:37)
[2021-11-24] VITALS: BP 142/85
--- NOTE | 2021-11-24 | NUR ---
NEW BAG OF FEEDING HUNG AT DESIRED RATE. ELEVATED HEAD TO PREVENT ASPIRATION. TURNED Q2H. WILL CONTINUE TO MONITOR PATIENT.
[2021-11-24] MEDS: CEFEPIME 2,000 MG in DEXTROSE 5% 100 ML IV SCH ×3 (00:22→17:00)
[2021-11-24] MEDS: levETIRAcetam 1,000 MG in NACL 0.9% 100 ML IV SCH ×3 (00:35→17:00)
[2021-11-24] MEDS: HYDRAGUARD CREAM TP SCH ×2 (00:36→13:32)
[2021-11-24] MEDS: metroNIDAZOLE 500 MG/NS PREMIX 100 ML IV SCH ×3 (02:22→20:12)
[2021-11-24 04:00] VITALS: BP 145/91
--- NOTE | 2021-11-24 05:00 | NUR ---
MORNING CARE, PERICARE RENDERED. COMPLETE BED CHANGE DONE. PATIENT REPOSITIONED AND WOUND CARE DONE. HEAD OF BED ELEVATED. WILL CONTINUE TO MONITOR PATIENT.
[2021-11-24] MEDS: METOPROLOL 25 MG TAB PO SCH ×3 (05:26→21:16)
[2021-11-24] MEDS: VANCOMYCIN HCL 1.25 GM in DEXTROSE 5% 250 ML IV SCH (05:27)
[2021-11-24 05:47] LABS: ANION GAP 14.4 (8-16); CARBON DIOXIDE 21.1 mmol/L (21-32); CREATININE 0.9 mg/dL (0.6-1.3); POTASSIUM 3.5 mmol/L (3.5-5.1)
[2021-11-24 06:08] LABS: BASOPHILS # (AUTO) 0.1 K/uL (0.00-0.22); BASOPHILS % (AUTO) 0.5 % (0.0-2.0); EOSINOPHILS # (AUTO) 0.9 K/uL (0-0.4); EOSINOPHILS % (AUTO) 4.7 % (0.0-4.0); HEMATOCRIT 33.9 % (36-52); LYMPHOCYTES # (AUTO) 2.6 K/uL (2.0-11.5); LYMPHOCYTES % (AUTO) 13.3 % (20.5-51.1); MEAN CORPUSCULAR HEMOGLOBIN 29 pg (27-31); MEAN CORPUSCULAR HGB CONC 32 g/dL (33-37); MEAN CORPUSCULAR VOLUME 89.4 fL (80-94); MONOCYTES # (AUTO) 0.7 K/uL (0.8-1.0); MONOCYTES % (AUTO) 3.4 % (1.7-9.3); NEUTROPHILS # (AUTO) 15.1 K/uL (1.8-7.7); NEUTROPHILS % (AUTO) 78.1 % (42.2-75.2); PLATELET COUNT (AUTO) 286 K/uL (140-450); RED BLOOD CELL COUNT(AUTO) 3.79 MIL/uL (4.20-6.10); RED CELL DISTRIBUTION WIDTH 18.3 % (11.6-13.7)
[2021-11-24 06:49] LABS: WHITE BLOOD COUNT (AUTO) 19.4 K/uL (4.8-10.8)
--- NOTE | 2021-11-24 07:10 | NUR ---
RECEIVED REPORT FROM DIRECTOR OF CHILD WELFARE SERVICES NURSE FOR CONTINUITY OF CARE. HEAD OF BED ELEVATED FOR ASPIRATION PRECAUTION. NO DISTRESS NOTED. ON O2 AT 2L/MIN VIA NASAL CANULA. VANCO IV ANTIBIOTIC RUNNING AT 100CC/HOUR NO ADVERSE REACTION NOTED. ALL SAFETY MEASURE IN PLACE.
--- NOTE | 2021-11-24 07:18 | NUR ---
REPORT GIVEN TO MORNING NURSEPITER. PATIENT RESTING ON BED, STABLE AT THIS TIME.
[2021-11-24 08:00] VITALS: BP 137/90
--- NOTE | 2021-11-24 09:25 | NUR ---
SKIN ASSESSMENT DONE WITH NEW SKIN ALTERATIONS NOTICED. POC DISCUSSED WITH PRIMARY NURSE AND DR. REID. SACRAL COCCYX RESPONDING TO THERAHONEY, LEFT HEEL BLISTER REMAIN INTACT VERSATEL DRESSING APPLY,HEEL RAISER IN PLACE WITH OFFLOADING. PT. WITH INCONTINENCE OF BOWEL AND BLADDER DURING ASSESSMENT, GOOD CARMINA CARE PROVIDES,BARRIER CR. APPLY. -LEFT EAR NON-BLANCHABLE REDNESS, SKIN INTACT WARM TO TOUCH -RIGHT LATERAL OCCIPITAL TO LATERAL FRONTAL HX CRANIOTOMY NON-BULGING, OLD SURGICAL SCAR SOFT WHITE/LIGHT BROWN SCABS WITH SURROUNDING SKIN ERYTHEMA,NORMAL SKIN TEMPERATURE, MOIST WITH SEROUS DRAINAGE, NO ODOR, CARMINA WOUND SKIN INTACT HARDEN SKIN EXTENDED TO RIGHT EAR. -LEFT HEEL PRESSURE INJURY STAGE 2 1X1CM INTACT BLISTER WITH CLEAR FLUID CARMINA-WOUND SKIN INTACT NON-BLANCHABLE REDNESS, MUSHY, FURTHER DAMAGE INDICATED -SACRALCOCCYX PRESSURE INJURY STAGE 4 WITH 8X11X0.3 CM 50% GALVAN/BROWN SLOUGH TISSUE, 50% PINK GRANULATION TISSUE, WOUND EDGE FLAT ATTACHED, WOUND BED MOIST, NO ODOR, CARMINA-WOUND SKIN MOIST, DENUDED WITH BLANCHABLE REDNESS RECOMMENDATIONS: -CONTINUE TO FOLLOW PREVIOUS RECOMMENDATIONS -APPLY SKIN PREP WIPE TO LEFT EAR BID AND OFFLOADING -APPLY MOIST BETADINE 2X2 GAUZE TO RIGHT LATERAL OCCIPITAL COVER WITH ISLAND DRESSING QD AND PRN IF SOILING -VERSATEL DRESSING TO LEFT HEEL Q5 DAYS AND PRN IF SOILING
--- NOTE | 2021-11-24 09:30 | NUR ---
WOUND NURSE AT BED SIDE WITH STUDENT AND TREATMENT AND ASSESSMENT DONE.
[2021-11-24] MEDS: PANTOPRAZOLE 40 MG INJ VIAL IVP SCH (09:44)
[2021-11-24] MEDS: ACETAZOLAMIDE SOD 250 MG TAB PO SCH ×2 (09:44→21:15)
--- NOTE | 2021-11-24 09:49 | NUR ---
RN GAVE IV MEDICATION.
--- NOTE | 2021-11-24 09:54 | NUR ---
GIVEN MEDICATION VIA GT. TOLERATED WELL. NO RESIDUAL NOTED AT GT. HEAD OF BED ELEVATED.
--- NOTE | 2021-11-24 10:30 | NUR ---
DC PLANNING: PAULINO SPOKE WITH FRANKLIN, HOME CARE NURSE AT [facility] ([phone]), LET HER KNOW THAT DR REID WILL ACCEPT THE PATIENT, SHE ASKED THAT DR REID CALL HER TO CONFIRM. FRANKLIN'S PHONE NUMBER GIVEN TO DR REID WITH REQUEST TO CALL HER, CAM WILL FOLLOW UP FOR TRANSFER. Addendum: 11/25/21 at 1323 by Tova Vail CM DC PLANNING: THE PATIENT WILL RETURN TO [facility] AND WILL BE PUT ON HOSPICE PER FAMILY REQUEST. DC ORDER, PATIENT ACCEPTED BACK TO [facility] ROOM [address], DR REID TO FOLLOW. NUMBER TO CALL REPORT IS [phone], TRANSPORT REQUEST FAXED TO [facility], ASKED FOR 1500 UNIFORMER TIME, WILL WAIT FOR [facility] TO CONFIRM. PAULINO ALSO SPOKE WITH THE PATIENTS DAUGHTER JACKIE TO GIVE HER THE DC DETAILS, JACKIE AND HER MOTHER ARE IN AGREEMENT WITH THE PATIENT RETURNING TO [facility]. PAULINO WILL FOLLOW. Addendum: 11/25/21 at 1500 by Tova Vail CM DC PLANNING: CALL FROM [facility] STATING THAT THE PATIENT WILL BE PICKED UP AROUND 1600 BY [facility] ([phone]). CM WILL FOLLOW.
--- NOTE | 2021-11-24 11:53 | NUR ---
RN GAVE IV ANTIBIOTIC.
[2021-11-24 12:00] VITALS: BP 138/94
[2021-11-24] MEDS: GAUZE TP SCH (13:32)
[2021-11-24] MEDS: THERAHONEY GEL 42.5 GM TP SCH (13:33)
--- NOTE | 2021-11-24 13:43 | NUR ---
11/24/21 RD FOLLOW UP COMPLETED PLEASE REFER TO NUTRITION ASSESSMENT UNDER CARE ACTIVITY FOR ESTIMATED NUTRITIONAL NEEDS. 1. CONTINUE GLUCERNA 1.2 @ 55 ML/HR TOLERATED -RECOMMENDED INCREASING FWF TO 200 ML Q6H -CONTINUE RUTH BID PER RD PROTOCOL -WITH RUTH BID, PT IS RECEIVING 1744 KCAL AND ~110 GM PROTEIN MEETING 80% OF ESTIMATED KCAL AND 100 % OF ESTIMATED PROTEIN NEEDS 2. MONITOR GASTRIC RESIDUALS AND NUTRITION-RELATED LAB VALUES 3. RD TO FOLLOW-UP 2-3 DAYS, HIGH RISK SAM REID RD
--- NOTE | 2021-11-24 13:48 | NUR ---
GIVEN MEDICATION VIA GT. TOLERATED WELL. HEAD OF BED ELEVATED FOR ASPIRATION PRECAUTION.
--- NOTE | 2021-11-24 15:00 | NUR ---
CHANGE AND REPOSITION PATIENT TOLERATED WELL. NO DISTRESS NOTED. HEAD OF BED ELEVATED FOR ASPIRATION PRECAUTION. GIVEN MEDICATION VIA GT AND RN GIVE IV ANTIBIOTIC AND KEPPA TOLERATED WELL. HEAD OF BED ELEVATED FOR ASPIRATION PRECAUTION.
[2021-11-24 16:00] VITALS: BP 135/89
--- NOTE | 2021-11-24 18:54 | NUR ---
PATIENT ON BED WITH VISITOR AT THIS TIME NO DISTRESS. HEAD OF BED ELEVATED. ALL SAFETY MEASURE IN PLACE.
--- NOTE | 2021-11-24 19:28 | NUR ---
GAVE REPORT TO EMAIL MARKETING INTERN NURSE FOR CONTINUITY OF CARE.
--- NOTE | 2021-11-24 19:30 | NUR ---
RECEIVED PATIENT RESTING ON BED. BREATHING EVEN AND UNLABORED ON 4L/NC., O2 SAT AT 98%. HOB ELEVATED. PATIENT AWAKE WITH SPONTANEOUS EYE OPENING. IV SITE ON LAC AND LEFT WRIST INTACT. TUBE FEEDING ONGOING AT DESIRED RATE. BED LOCKED AT LOWEST WITH BED ALARM ON. WILL CONTINUE TO MONITOR PATIENT.
[2021-11-24 20:00] VITALS: BP 115/75
--- NOTE | 2021-11-24 20:20 | NUR ---
PT LAYING IN BED HOB ELEVATED, BS CLEAR/DIMINISHED THROUGHOUT, NO SIGNS OF RESPIRATORY DISTRESS NOTED AT THIS TIME. PT IS CURRENTLY SATING 98% ON 2L NC WILL CONTINUE TO MONITOR.
[2021-11-24] MEDS: BRIMONIDINE TARTRATE 0.2% OP 5 ML BTL OP SCH (20:28)
[2021-11-25] VITALS: BP 129/86
[2021-11-25] MEDS: VANCOMYCIN HCL 1.25 GM in DEXTROSE 5% 250 ML IV SCH (00:23)
[2021-11-25] MEDS: CEFEPIME 2,000 MG in DEXTROSE 5% 100 ML IV SCH ×3 (00:25→17:04)
--- NOTE | 2021-11-25 00:30 | NUR ---
PATIENT RESTING ON BED. VSS. NO UNTOWARD S/SX OBSERVED. TURNED Q2H. WILL CONTINUE TO MONITOR PATIENT.
[2021-11-25] MEDS: HYDRAGUARD CREAM TP SCH ×2 (01:52→12:50)
[2021-11-25] MEDS: levETIRAcetam 1,000 MG in NACL 0.9% 100 ML IV SCH ×2 (01:52→08:58)
[2021-11-25] MEDS: metroNIDAZOLE 500 MG/NS PREMIX 100 ML IV SCH ×2 (03:34→11:01)
[2021-11-25 04:00] VITALS: BP 138/92
[2021-11-25] MEDS: METOPROLOL 25 MG TAB PO SCH ×2 (04:46→12:49)
--- NOTE | 2021-11-25 05:20 | NUR ---
MORNING CARE RENDERED. COMPLETE BED CHANGE DONE. WOUND CARE PROVIDED.ORAL CARE RENDERED. ALL NEEDS ATTENDED. WILL CONTINUE TO MONITOR AND ASSESS.
[2021-11-25 06:08] LABS: ANION GAP 10.4 (8-16); CARBON DIOXIDE 23.9 mmol/L (21-32); CREATININE 0.8 mg/dL (0.6-1.3); POTASSIUM 3.3 mmol/L (3.5-5.1)
[2021-11-25 06:58] LABS: BASOPHILS % (AUTO) 0.2 % (0.0-2.0); EOSINOPHILS # (AUTO) 0.1 K/uL (0-0.4); EOSINOPHILS % (AUTO) 0.3 % (0.0-4.0); HEMATOCRIT 33.5 % (36-52); HEMOGLOBIN 10.6 g/dL (12.0-18.0); LYMPHOCYTES # (AUTO) 2.4 K/uL (2.0-11.5); LYMPHOCYTES % (AUTO) 14.1 % (20.5-51.1); MEAN CORPUSCULAR HEMOGLOBIN 28 pg (27-31); MEAN CORPUSCULAR HGB CONC 32 g/dL (33-37); MEAN CORPUSCULAR VOLUME 88.8 fL (80-94); MONOCYTES # (AUTO) 0.7 K/uL (0.8-1.0); MONOCYTES % (AUTO) 4.2 % (1.7-9.3); NEUTROPHILS # (AUTO) 13.9 K/uL (1.8-7.7); NEUTROPHILS % (AUTO) 81.2 % (42.2-75.2); PLATELET COUNT (AUTO) 182 K/uL (140-450); RED BLOOD CELL COUNT(AUTO) 3.77 MIL/uL (4.20-6.10); RED CELL DISTRIBUTION WIDTH 18.4 % (11.6-13.7); WHITE BLOOD COUNT (AUTO) 17.1 K/uL (4.8-10.8)
--- NOTE | 2021-11-25 07:30 | NUR ---
RECEIVED BEDSIDE REPORT FROM RN MENTAL HEALTH RN FOR CONTINUITY OF CARE. PT IN BED WITH HOB ELEVATED. APHASIC, OPENS EYES AT TIMES, NO TRACKING. PT IS ON 2 L NC, O2 SATURATION AT 97%. NO APPARENT DISTRESS, FLACC 0. SKIN IS WARM, DRY, AND NON-INTACT, REFER TO SKIN ASSESSMENT. TUBE FEEDING RUNNING PER MD ORDER. WITH PERIPHERAL IV LAC 20G, LW 24G. IVF RUNNING PER MD ORDER. PLAN TO TRANSFER TO [facility] TEMPORAL ABSCESS. CM ON THE CASE. BED AT THE LOWEST POSITION. ALL SAFETY MEASURES TAKEN. WILL CONTINUE TO MONITOR.
[2021-11-25 08:00] VITALS: BP 137/87
[2021-11-25] MEDS: ACETAZOLAMIDE SOD 250 MG TAB PO SCH (08:58)
[2021-11-25] MEDS: PANTOPRAZOLE 40 MG INJ VIAL IVP SCH (08:58)
--- NOTE | 2021-11-25 09:00 | NUR ---
WITH GT RESIDUAL OF 90CC. DUE MEDS GIVEN TOLERATED WELL
--- NOTE | 2021-11-25 11:19 | NUR ---
NO RESPIRATORY DISTRESS. FLACC 0, FAMILY AT BEDSIDE
[2021-11-25 12:00] VITALS: BP 132/85
[2021-11-25] MEDS: POTASSIUM CHLORIDE 40 MEQ, LIDOCAINE MPF 1% 25 MG in NACL 0.9% 250 ML IV PRN (12:14)
[2021-11-25] MEDS: GAUZE TP SCH (12:49)
[2021-11-25] MEDS: THERAHONEY GEL 42.5 GM TP SCH (12:50)
[2021-11-25] MEDS ORDERED: DIA250 PO (13:03)
[2021-11-25] MEDS ORDERED: [UNRECOGNIZED DRUG - CODE] IV (13:03)
[2021-11-25] MEDS ORDERED: METO25TA PO (13:03)
[2021-11-25] MEDS ORDERED: DOCU-299 PO (13:03)
[2021-11-25] MEDS ORDERED: [UNRECOGNIZED DRUG - CODE] PO (13:03)
--- NOTE | 2021-11-25 13:30 | NUR ---
REPORT GIVEN TO KONG CARLSON IN [facility]
--- NOTE | 2021-11-25 14:26 | NUR ---
WOUND DISCHARGE PHOTOGRAPH TAKEN
[2021-11-25 16:00] VITALS: BP 133/88
--- NOTE | 2021-11-25 18:03 | NUR ---
[facility]
== END 2021-11-25 17:54 | DRG 871 ==
LOC: MED 19:44 → MTU 11-18 00:39
PROVIDERS: ADMIT Student in an Organized Health Care Education/Training Program; ATTEND Student in an Organized Health Care Education/Training Program
DX: A41.9 Sepsis, unspecified organism (principal); E43 Unspecified severe protein-calorie malnutrition; G93.41 Metabolic encephalopathy; J18.9 Pneumonia, unspecified organism; G06.0 Intracranial abscess and granuloma; N39.0 Urinary tract infection, site not specified; C71.9 Malignant neoplasm of brain, unspecified; E87.0 Hyperosmolality and hypernatremia; H70.91 Unspecified mastoiditis, right ear; G40.909 Epilepsy, unspecified, not intractable, without status epilepticus; E87.6 Hypokalemia; R74.01 Elevation of levels of liver transaminase levels; E86.0 Dehydration; Z66 Do not resuscitate; Z20.822 Contact with and (suspected) exposure to COVID-19; R13.10 Dysphagia, unspecified; D63.8 Anemia in other chronic diseases classified elsewhere; I10 Essential (primary) hypertension; Z85.841 Personal history of malignant neoplasm of brain; Z93.1 Gastrostomy status; Z68.25 Body mass index [BMI] 25.0-25.9, adult
CPT/HCPCS: 36415; 36600; 70450; 70487; 71045; 80048; 80053; 80202; 81001; 82150; 82803; 83036; 83690; 83735; 83880; 84100; 84436; 84439; 84443; 84479; 84484; 85025; 85610; 85730; 87040; 87081; 87086; 93005; 96365; 99291; C9113; J0692; J0696; J1940; J1953; J2001; J2543; J3370; J3480; J3490; J7030; J7060; Q9967